=== PATIENT | male | born 1980 | race Hispanic/Latino ===

== ENCOUNTER → 2016-05-02 | Outpatient (CLI) | payer BC ==
--- NOTE | 2016-05-02 09:55 | REP ---
SCROTAL SONOGRAPHY: HISTORY: Testalgia with tenderness. Question torsion. FINDINGS: High-resolution bilateral scrotal sonography shows no evidence of testicular mass lesion on either side. Testicular parenchyma is homogeneous. Testicular Doppler flow is normal bilaterally. Resistive indices are 0.67 on the right and 0.59 on the left. Right testicular dimensions are 5.1 x 2.5 x 3.4 cm. Left testis measures 4.9 x 2.3 x 3.4 cm. There is no evidence of intratesticular mass lesion. Epididymides are unremarkable bilaterally. No other abnormality. IMPRESSION: Normal bilateral scrotal sonography. Normal Doppler flow to both testes. Signed by Tanner Beltrán MD 05/02/2016 02:31 P
== END ==
LOC: M RAD 08:37
PROVIDERS: ATTEND Physician Assistant Medical
DX: N50.819 Testicular pain, unspecified (principal)

== ENCOUNTER → 2016-05-04 | Outpatient (REF) | payer BC | LOC: M LAB REF 16:37 | PROVIDERS: ATTEND Physician Assistant Medical | DX: N39.0 Urinary tract infection, site not specified (principal) ==

== ENCOUNTER → 2016-12-25 | Outpatient (REF) | payer OTHER ==
[~2016-12-25] MED LIST: CEPH500C; CLEO300C2 PO; IBUP200C10 PO; MUPI2OI; RAMI5CA; Tamsulosin
== END ==
LOC: M SFHCADAM 08:48
PROVIDERS: ATTEND Physician Assistant Medical
DX: R30.0 Dysuria (principal)

== ENCOUNTER → 2016-12-25 | Outpatient (REF) | payer OTHER ==
[2016-12-25 12:47] LABS: BASO % 0.7 % (0.0-1.0); EOS # 0.1 K/mm3 (0.0-0.50); EOS % 2.4 % (0.0-3.0); LARGE UNSTAINED CELL # 0.1 K/mm3 (0.0-0.4); LARGE UNSTAINED CELL % 2.5 % (0.0-4.0); LYMPH # 1.4 K/mm3 (1.5-4.5); LYMPH % 29.6 % (24.0-44.0); MEAN CORPUSCULAR HEMOGLOBIN 30.8 pg (27.0-33.0); MEAN CORPUSCULAR HGB CONC 33.2 g/dl (32.0-36.5); MONO # 0.4 K/mm3 (0.0-0.8); MONO % 8.6 % (0.0-5.0); NEUTROPHILS # 2.4 K/mm3 (1.8-7.7); NEUTROPHILS % 56.2 % (36.0-66.0); PLATELET COUNT, AUTOMATED 224 k/mm3 (150-450); WHITE BLOOD COUNT 4.3 K/mm3 (4.0-10.0)
[2016-12-25 13:22] LABS: ALBUMIN 3.8 GM/DL (3.2-5.2); ALBUMIN/GLOBULIN RATIO 1.31 (1.00-1.93); ALKALINE PHOSPHATASE 69 U/L (45-117); ALT/SGPT 51 U/L (12-78); ANION GAP 9 MEQ/L (8-16); AST/SGOT 19 U/L (15-37); BILIRUBIN,TOTAL 0.3 MG/DL (0.2-1.0); BLOOD UREA NITROGEN 10 MG/DL (7-18); CARBON DIOXIDE LEVEL 27 MEQ/L (21-32); CHLORIDE LEVEL 107 MEQ/L (98-107); CHOLESTEROL LEVEL 162 MG/DL (<200); CREATININE FOR GFR 0.78 MG/DL (0.70-1.30); GLOMERULAR FILTRATION RATE > 60.0 (>60); GLUCOSE, FASTING 93 MG/DL (70-105); POTASSIUM SERUM 4.6 MEQ/L (3.5-5.1); SODIUM LEVEL 143 MEQ/L (136-145); TOTAL PROTEIN 6.7 GM/DL (6.4-8.2); TRIGLYCERIDES LEVEL 131 MG/DL (<150)
== END ==
LOC: M SFHCADAM 09:32
PROVIDERS: ATTEND Physician Assistant Medical
DX: E66.01 Morbid (severe) obesity due to excess calories (principal); I10 Essential (primary) hypertension

== ENCOUNTER → 2017-02-04 | Outpatient (CLI) | payer OTHER ==
[2017-02-04 18:16] LABS: BASO % 0.5 % (0.0-1.0); EOS # 0.1 10^3/uL (0.0-0.50); EOS % 1.8 % (0.0-3.0); IMMATURE GRANULOCYTE % 0.4 % (0-0); LYMPH # 1.4 10^3/uL (1.5-4.5); LYMPH % 25.9 % (24.0-44.0); MEAN CORPUSCULAR HEMOGLOBIN 30.9 pg (27.0-33.0); MEAN CORPUSCULAR VOLUME 90.8 fl (80.0-96.0); MONO # 0.6 10^3/uL (0.0-0.8); MONO % 10.1 % (0.0-5.0); NEUTROPHILS # 3.4 10^3/uL (1.8-7.7); NEUTROPHILS % 61.3 % (36.0-66.0); PLATELET COUNT, AUTOMATED 214 10^3/uL (150-450); RED CELL DISTRIBUTION WIDTH 13.6 % (11.5-14.5); WHITE BLOOD COUNT 5.6 10^3/uL (4.0-10.0)
== END ==
LOC: M ADAMS 11:58
PROVIDERS: ATTEND Physician Assistant Medical
DX: R60.0 Localized edema (principal)

== ENCOUNTER → 2017-02-07 | Outpatient (REF) | payer OTHER | LOC: M SMT 12:42 | PROVIDERS: ATTEND Nurse Practitioner Women's Health | DX: R30.0 Dysuria (principal) ==

== ENCOUNTER 2017-02-09 14:03 | Emergency (ER) | payer BC, OTHER ==
[~2017-02-09] VITALS: Ht 170.2 cm; Wt 104.5 kg
[2017-02-09 14:04] VITALS: BP 159/88
[2017-02-09] MEDS ORDERED: MUPI2OI (14:19)
[2017-02-09] MEDS ORDERED: CEPH500C (14:19)
[2017-02-09] MEDS ORDERED: Tamsulosin (14:19)
[2017-02-09] MEDS ORDERED: RAMI5CA (14:19)
[2017-02-09] MEDS ORDERED: IBUP200C10 PO (14:19)
[2017-02-09] MEDS ORDERED: CLEO300C2 PO (15:15)
[2017-02-09] MEDS ORDERED: CLINDAMYCIN 150 MG CAP PO ONE (15:15)
== END 2017-02-09 15:21 | disposition home or self-care (01) ==
LOC: M ED 14:03
DX: L03.811 Cellulitis of head [any part, except face] (principal); I10 Essential (primary) hypertension; Z79.899 Other long term (current) drug therapy

== ENCOUNTER → 2017-03-05 | Outpatient (REF) | payer BC, OTHER | LOC: M SMT 17:05 | PROVIDERS: ATTEND Urology | DX: R39.9 Unspecified symptoms and signs involving the genitourinary system (principal) ==

== ENCOUNTER → 2017-03-16 | Outpatient (CLI) | payer BC, OTHER ==
[~2017-03-16] MED LIST changes: +ISOVUE-370 76% 100ML VIAL (Q9967) As Ordered ONE
--- NOTE | 2017-03-17 07:33 | REP ---
CT ABDOMEN AND PELVIS WITH CONTRAST: HISTORY: Lower urinary tract symptoms. CONTRAST: Isovue-370, 75 mL. The patient is status post cholecystectomy. The liver, pancreas, spleen, adrenal glands, kidneys and ureters are normal in appearance. There is no mass, adenopathy or free fluid. The visualized lungs are clear. The prostate gland and urinary bladder are normal in appearance. Degenerative change is present in the spine. There are bilateral L5 pars defects. There is no spondylolisthesis. IMPRESSION: The patient is status post cholecystectomy. Signed by Varghese Arellano MD 03/17/2017 08:59 A
== END ==
LOC: M RAD 16:26
PROVIDERS: ATTEND Urology
DX: R39.9 Unspecified symptoms and signs involving the genitourinary system (principal)
CPT/HCPCS: 74178; Q9967

== ENCOUNTER → 2017-04-23 | Outpatient (REF) | payer OTHER ==
[2017-04-23 18:37] LABS: AMORPHOUS SEDIMENT LARGE (NEGATIVE); APPEARANCE, URINE TURBID (CLEAR); BACTERIA, URINE AUTO NEGATIVE (NEGATIVE); BILIRUBIN, URINE AUTO NEGATIVE (NEGATIVE); BLOOD, URINE BLOOD NEGATIVE (NEGATIVE); COLOR, URINE YELLOW (YELLOW); GLUCOSE, URINE (UA) AUTO NEGATIVE (NEGATIVE); KETONE, URINE AUTO NEGATIVE (NEGATIVE); LEUKOCYTE ESTERASE, URINE AUTO NEGATIVE (NEGATIVE); MUCUS, URINE SMALL (NEGATIVE); NITRITE, URINE AUTO NEGATIVE (NEGATIVE); PROTEIN, URINE AUTO NEGATIVE (NEGATIVE); RBC, URINE AUTO 1 /HPF (0-3); SQUAMOUS EPITHELIAL CELL UR AU 0 /HPF (0-6); UROBILINOGEN, URINE AUTO 0.2 mg/dL (0.0-2.0); WBC, URINE AUTO 1 /HPF (0-3)
== END ==
LOC: M SMT 17:13
DX: R39.9 Unspecified symptoms and signs involving the genitourinary system (principal)

== ENCOUNTER → 2018-01-15 | Outpatient (CLI) | payer BC, OTHER | LOC: M EKG 14:10 | DX: R00.2 Palpitations (principal) | CPT/HCPCS: 93225 ==

== ENCOUNTER → 2018-01-15 | Outpatient (REF) | payer OTHER ==
[2018-01-15 12:49] LABS: HEMATOCRIT 45.4 % (42.0-52.0); HEMOGLOBIN 15.3 g/dl (13.5-17.5); MEAN CORPUSCULAR HGB CONC 33.7 g/dl (32.0-36.5); MEAN CORPUSCULAR VOLUME 91.9 fl (80.0-96.0); PLATELET COUNT, AUTOMATED 183 10^3/uL (150-450); RED BLOOD COUNT 4.94 10^6/uL (4.30-6.10); RED CELL DISTRIBUTION WIDTH 13.1 % (11.5-14.5)
[2018-01-15 13:44] LABS: ALBUMIN 3.6 GM/DL (3.2-5.2); ALBUMIN/GLOBULIN RATIO 1.03 (1.00-1.93); ALKALINE PHOSPHATASE 76 U/L (45-117); ALT/SGPT 103 U/L (12-78); ANION GAP 9 MEQ/L (8-16); AST/SGOT 41 U/L (7-37); BILIRUBIN,TOTAL 0.7 MG/DL (0.2-1.0); BLOOD UREA NITROGEN 13 MG/DL (7-18); CALCIUM LEVEL 8.1 MG/DL (8.5-10.1); CARBON DIOXIDE LEVEL 23 MEQ/L (21-32); CHLORIDE LEVEL 107 MEQ/L (98-107); CREATININE FOR GFR 1.06 MG/DL (0.70-1.30); GLOMERULAR FILTRATION RATE > 60.0 (>60); GLUCOSE, FASTING 90 MG/DL (70-100); MAGNESIUM LEVEL 2.2 MG/DL (1.8-2.4); POTASSIUM SERUM 4.4 MEQ/L (3.5-5.1); SODIUM LEVEL 139 MEQ/L (136-145); TOTAL PROTEIN 7.1 GM/DL (6.4-8.2)
== END ==
LOC: M SFHCADAM 08:54
DX: R00.2 Palpitations (principal); R63.5 Abnormal weight gain

== ENCOUNTER → 2018-01-15 | Outpatient (CLI) | payer BC, OTHER | LOC: M ADAMS 09:10 | DX: R00.2 Palpitations (principal) | CPT/HCPCS: 71046 ==

== ENCOUNTER 2018-05-23 11:46 | Day surgery (SDC) | payer BC, OTHER ==
[~2018-05-23] VITALS: Ht 170.2 cm; Wt 118.5 kg
[~2018-05-23 11:46] MED LIST changes: -IBUP200C10 PO; +IBUP200C25 PO; -ISOVUE-370 76% 100ML VIAL (Q9967) As Ordered ONE; +LR 1,000 ML IV ONE; +RAMI1CAP24 PO; -RAMI5CA
[2018-05-23] MEDS ORDERED: LIDOCAINE 1% SDV INJ 30 ML VIAL As Ordered ONE (12:05)
[2018-05-23] MEDS ORDERED: PROPOFOL 200 MG/20 ML VIAL As Ordered ONE ×2 (12:29→14:30)
[2018-05-23] MEDS ORDERED: MIDAZOLAM INJ 2 MG/2 ML VIAL (J2250) As Ordered ONE (12:29)
[2018-05-23] MEDS ORDERED: LIDOCAINE 2% INJ 100 MG/5 ML SDV (FOR ANES.) As Ordered ONE (12:29)
[2018-05-23] MEDS ORDERED: fentaNYL 100 MCG/2 ML INJECTION (J3010) As Ordered ONE (12:30)
[2018-05-23] MEDS ORDERED: ONDANSETRON 4MG/2ML VIAL (J2405) As Ordered ONE (14:20)
[2018-05-23] MEDS ORDERED: KETOROLAC 60 MG/2 ML VIAL (J1885) As Ordered ONE (14:20)
[2018-05-23] MEDS ORDERED: dexameTHASONE 4 MG/ML 1ML VIAL (J1100) As Ordered ONE (14:20)
[2018-05-23] MEDS ORDERED: ePHEDrine SULFATE 25 MG/5 ML(5MG/ML) SYRINGE As Ordered ONE (14:22)
--- NOTE | 2018-05-23 15:12 | RO ---
DATE OF PROCEDURE: 05/23/2018 PREPROCEDURE DIAGNOSIS: Unexplained palpitations. POSTPROCEDURE DIAGNOSIS: Unexplained palpitations. FINDINGS: Unexplained palpitations. PROCEDURE: Implantation of [employer] implantable loop recorder. SURGEON: Carlos Parker MD CERTIFIED MEDICATION TECHNICIAN: None. ANESTHESIA: Lidocaine 1% local/monitored anesthetic care. No specimens. Estimated blood loss: Less than 1 mL. No blood products replaced. No drains. No complications. DESCRIPTION OF PROCEDURE: The patient was prepped and draped over the sternum and left anterior chest. Lidocaine 1% was used for local anesthetic. Incision was made approximately 1 cm in length using a #15 blade at the left 4th interspace, 1 inch lateral to the left parasternal border. The guide on the insertion tool was placed into the incision and advanced parallel to the chest wall within the subcutaneous fat in a caudal-left lateral direction. Insertion tool was rotated 180 degrees and then the plunger was placed into the insertion tool and used to advance the loop recorder into the subcutaneous fat. The plunger was then removed and then the insertion tool was removed leaving the loop recorder behind. A single #3-0 Vicryl suture was used to help approximate the deep layer. A temporary stitch to approximate the skin was used consisting of #4-0 Biosyn, which was placed subcuticular with the suture protruding from the skin at both ends of the incision. Next, two layers of Dermabond was applied. Next, the Biosyn suture was then removed from the incision line completely. Next, Mastisol was placed above and below the incision, being careful not to get any Mastisol on the Dermabond. Next, three half-inch Steri-Strips, which were cut in half, were placed perpendicular to the incision line. The patient tolerated the procedure well without any immediate complications. The implantable loop recorder implanted was a [employer] LINQ, model LNQ11 with serial number [id number]. The initial R wave measured 0.45 mV.
[2018-05-23 15:43] VITALS: BP 140/91
== END 2018-05-23 15:45 | disposition home or self-care (01) ==
LOC: M SDC 11:46
PROVIDERS: ATTEND Internal Medicine Cardiovascular Disease
DX: R00.2 Palpitations (principal); I10 Essential (primary) hypertension; G47.30 Sleep apnea, unspecified; Z79.899 Other long term (current) drug therapy
CPT/HCPCS: 33285; C1764; J0690; J1100; J1885; J2250; J2405; J3010

== ENCOUNTER → 2018-07-22 | Outpatient (CLI) | payer BC, OTHER ==
[~2018-07-22] MED LIST changes: -LR 1,000 ML IV ONE
--- NOTE | 2018-07-24 07:15 | ECHO ---
DATE OF PROCEDURE: 07/22/2018 HEIGHT: 67 inches. WEIGHT: 263 pounds BODY SURFACE AREA: 2.27 sq m m2 REFERRING PHYSICIAN: YIMI Zurita INDICATION: Paroxysmal atrial fibrillation. MEASUREMENTS: 2D Measurements: RV - 4.2 cm LV - 4.4 cm Septum -1.1 cm Posterior wall - 1.1 cm LA - 3.9 cm Aortic root - 3.2 cm LVEF - 75% Doppler Measurements: AV - 1.5 meters per second LVOT - 1.2 meters per second LVOT diameter - 2.1 cm MV - E 83, A - 50, E:A ratio 1.7 Early mitral deceleration time 160 milliseconds E prime 8.9, A prime 11, E:E prime ratio 9.3 PV - 0.9 meters per second Pulmonary artery acceleration time 110 milliseconds RVSP - 45 mmHg IVC - 2.2 cm COMMENTS: Sinus bradycardia without intraventricular conduction disturbance. Somewhat challenging study in light of the patient's body habitus but diagnostically useful information was still obtained. M-mode and two-dimensional echocardiography was performed with pulsed, continuous wave, color flow and tissue Doppler studies. Normal left ventricular size, wall thickness and wall motion. Left atrial size upper limits of normal with currently normal Doppler assessment of LV diastolic function and estimated mean left atrial pressure. Mildly dilated right heart chambers with Doppler evidence of moderate pulmonary hypertension. IVC size upper limits of normal with reduced respiratory collapse suggestive of a slightly elevated central venous pressure. Normal-appearing aortic valve and function. Normal aortic root size. Normal-appearing mitral valvular apparatus without prolapse but very mild insufficiency. Normal appearing tricuspid valve with mild insufficiency. No apparent intracardiac mass or pericardial effusion. MTDD
== END ==
LOC: M CARPUL 10:06
PROVIDERS: ATTEND Physician Assistant
DX: I48.0 Paroxysmal atrial fibrillation (principal)

== ENCOUNTER → 2018-10-01 | Outpatient (REF) | payer OTHER ==
[2018-10-01 19:53] LABS: BASO % 0.5 % (0.0-1.0); EOS % 0.9 % (0.0-3.0); HEMATOCRIT 47.2 % (42.0-52.0); HEMOGLOBIN 15.8 g/dl (13.5-17.5); LYMPH # 1.8 10^3/uL (1.5-4.5); LYMPH % 42.3 % (24.0-44.0); MEAN CORPUSCULAR HEMOGLOBIN 31.1 pg (27.0-33.0); MEAN CORPUSCULAR HGB CONC 33.5 g/dl (32.0-36.5); MEAN CORPUSCULAR VOLUME 92.9 fl (80.0-96.0); MONO # 0.6 10^3/uL (0.0-0.8); MONO % 13.1 % (0.0-5.0); NEUTROPHILS # 1.8 10^3/uL (1.8-7.7); PLATELET COUNT, AUTOMATED 197 10^3/uL (150-450); RED BLOOD COUNT 5.08 10^6/uL (4.30-6.10); WHITE BLOOD COUNT 4.3 10^3/uL (4.0-10.0)
[2018-10-01 20:15] LABS: ALBUMIN 3.4 GM/DL (3.2-5.2); ALT/SGPT 63 U/L (12-78); BILIRUBIN,TOTAL 0.5 MG/DL (0.2-1.0); BLOOD UREA NITROGEN 16 MG/DL (7-18); CALCIUM LEVEL 8.7 MG/DL (8.5-10.1); CARBON DIOXIDE LEVEL 28 MEQ/L (21-32); CHLORIDE LEVEL 106 MEQ/L (98-107); CREATININE FOR GFR 0.95 MG/DL (0.70-1.30); GLOMERULAR FILTRATION RATE > 60.0 (>60); GLUCOSE, FASTING 83 MG/DL (70-100); POTASSIUM SERUM 4.6 MEQ/L (3.5-5.1); SODIUM LEVEL 140 MEQ/L (136-145); TOTAL PROTEIN 6.8 GM/DL (6.4-8.2)
[2018-10-01 20:20] LABS: HEMOGLOBIN A1c 6.2 %
== END ==
LOC: M LABDRWAD 19:13
PROVIDERS: ATTEND Surgery
DX: Z01.812 Encounter for preprocedural laboratory examination (principal); I10 Essential (primary) hypertension; G47.33 Obstructive sleep apnea (adult) (pediatric); K21.9 Gastro-esophageal reflux disease without esophagitis

== ENCOUNTER → 2018-11-25 | Outpatient (REF) | payer OTHER ==
[2018-11-25 19:40] LABS: BASO % 0.3 % (0.0-1.0); EOS # 0.1 10^3/uL (0.0-0.50); EOS % 3.8 % (0.0-3.0); HEMATOCRIT 41.9 % (42.0-52.0); LYMPH # 1.2 10^3/uL (1.5-4.5); LYMPH % 39.2 % (24.0-44.0); MEAN CORPUSCULAR HEMOGLOBIN 31.5 pg (27.0-33.0); MEAN CORPUSCULAR HGB CONC 33.4 g/dl (32.0-36.5); MEAN CORPUSCULAR VOLUME 94.2 fl (80.0-96.0); MONO # 0.4 10^3/uL (0.0-0.8); NEUTROPHILS # 1.4 10^3/uL (1.8-7.7); NEUTROPHILS % 44.7 % (36.0-66.0); PLATELET COUNT, AUTOMATED 172 10^3/uL (150-450); RED BLOOD COUNT 4.45 10^6/uL (4.30-6.10); WHITE BLOOD COUNT 3.2 10^3/uL (4.0-10.0)
[2018-11-25 19:47] LABS: ALBUMIN 3.8 GM/DL (3.2-5.2); ALT/SGPT 51 U/L (12-78); BILIRUBIN,TOTAL 0.7 MG/DL (0.2-1.0); BLOOD UREA NITROGEN 14 MG/DL (7-18); CARBON DIOXIDE LEVEL 27 MEQ/L (21-32); CHLORIDE LEVEL 109 MEQ/L (98-107); CREATININE FOR GFR 0.87 MG/DL (0.70-1.30); FERRITIN 239 NG/ML (26-388); GLOMERULAR FILTRATION RATE > 60.0 (>60); GLUCOSE, FASTING 99 MG/DL (70-100); IRON (FE) 59 UG/DL (65-175); MAGNESIUM LEVEL 2.3 MG/DL (1.8-2.4); PERCENT SATURATION 19.5 % (19.7-50.0); PHOSPHORUS LEVEL 3.3 MG/DL (2.5-4.9); POTASSIUM SERUM 3.8 MEQ/L (3.5-5.1); SODIUM LEVEL 141 MEQ/L (136-145); TOTAL IRON BINDING CAPACITY 302 UG/DL (250-450); TOTAL PROTEIN 6.6 GM/DL (6.4-8.2)
[2018-11-25 19:48] LABS: HEMATOCRIT 41.9 % (42.0-52.0)
[2018-11-25 19:57] LABS: TOTAL 25(OH) VITAMIN D 29.9 NG/ML (30.0-100.0); VITAMIN B12 LEVEL 1270 PG/ML (247-911)
[2018-11-25 20:00] LABS: HEMOGLOBIN A1c 6.2 %
== END ==
LOC: M LABDRWAD 19:10
PROVIDERS: ATTEND Physician Assistant
DX: K91.2 Postsurgical malabsorption, not elsewhere classified (principal); Z98.84 Bariatric surgery status; E55.9 Vitamin D deficiency, unspecified

== ENCOUNTER 2019-11-23 22:12 | Emergency (ER) | payer BC, OTHER ==
[2019-11-23] MEDS ORDERED: METOPROLOL TART 25 MG TABLET ONE (22:32)
[2019-11-23] MEDS ORDERED: LORazepam 2 MG/ML VIAL ONE (22:32)
[2019-11-23] MEDS ORDERED: METOPROLOL 5 MG/5 ML VIAL ONE (22:32)
--- NOTE | 2020-01-01 09:17 | ECGEPIP ---
ATRIAL FIBRILLATION ABNORMAL RHYTHM ECG SEE SCANNED DOWNTIME REPORT MTDD
[2020-01-08 18:37] LABS: HEMATOCRIT 47.3 % (42.0-52.0); HEMOGLOBIN 16.3 g/dl (13.5-17.5); MEAN CORPUSCULAR HEMOGLOBIN 30.7 pg (27.0-33.0); MEAN CORPUSCULAR HGB CONC 34.5 g/dl (32.0-36.5); MEAN CORPUSCULAR VOLUME 89.1 fl (80.0-96.0); PLATELET COUNT, AUTOMATED 271 10^3/uL (150-450); RED BLOOD COUNT 5.31 10^6/uL (4.30-6.10); WHITE BLOOD COUNT 6.6 10^3/uL (4.0-10.0)
[2020-02-08 03:34] LABS: BLOOD UREA NITROGEN 14 MG/DL (7-18); CALCIUM LEVEL 8.8 MG/DL (8.5-10.1); CARBON DIOXIDE LEVEL 26 MEQ/L (21-32); CHLORIDE LEVEL 110 MEQ/L (98-107); CREATININE FOR GFR 1.07 MG/DL (0.70-1.30); GLOMERULAR FILTRATION RATE > 60.0 (>60); GLUCOSE, FASTING 92 MG/DL (70-100); POTASSIUM SERUM 3.7 MEQ/L (3.5-5.1); SODIUM LEVEL 144 MEQ/L (136-145)
== END 2019-11-23 23:45 | disposition home or self-care (01) ==
LOC: M ED 22:12
DX: I48.91 Unspecified atrial fibrillation (principal); Z98.84 Bariatric surgery status; Z79.01 Long term (current) use of anticoagulants; Z79.899 Other long term (current) drug therapy
CPT/HCPCS: 80048; 85027; 93005; 96374; 96375; 99284; J2060

== ENCOUNTER → 2020-05-07 | Outpatient (REF) | payer OTHER ==
[~2020-05-07] MED LIST changes: +ACET-897 PO; +AZIT500T5 PO; +DILT180C70; +DILT180C70 PO; +ELIQ5TAB; +ELIQ5TAB PO
[2020-05-07 16:59] LABS: BASO % 0.4 % (0.0-1.0); EOS # 0.1 10^3/uL (0.0-0.5); EOS % 2.3 % (0.0-3.0); HEMATOCRIT 41.5 % (42.0-52.0); HEMOGLOBIN 14.1 g/dl (13.5-17.5); LYMPH # 1.7 10^3/uL (1.5-5.0); MEAN CORPUSCULAR HEMOGLOBIN 30.9 pg (27.0-33.0); MEAN CORPUSCULAR VOLUME 90.8 fl (80.0-96.0); MONO # 0.5 10^3/uL (0.0-0.8); MONO % 9.7 % (0.0-5.0); NEUTROPHILS # 2.9 10^3/uL (1.5-8.5); NEUTROPHILS % 55.2 % (36.0-66.0); PLATELET COUNT, AUTOMATED 230 10^3/uL (150-450); RED BLOOD COUNT 4.57 10^6/uL (4.30-6.10); WHITE BLOOD COUNT 5.3 10^3/uL (4.0-10.0)
[2020-05-07 17:00] LABS: HEMATOCRIT 41.5 % (42.0-52.0)
[2020-05-07 17:30] LABS: HEMOGLOBIN A1c 5.7 %
[2020-05-07 17:36] LABS: ALBUMIN 3.8 GM/DL (3.2-5.2); ALT/SGPT 36 U/L (12-78); BILIRUBIN,TOTAL 0.4 MG/DL (0.2-1.0); BLOOD UREA NITROGEN 14 MG/DL (7-18); CALCIUM LEVEL 9.2 MG/DL (8.5-10.1); CARBON DIOXIDE LEVEL 30 MEQ/L (21-32); CHLORIDE LEVEL 105 MEQ/L (98-107); CHOLESTEROL LEVEL 178 MG/DL (<200); CHOLESTEROL RISK RATIO 3.296 (<5); FERRITIN 104 NG/ML (26-388); FREE T4 0.81 NG/DL (0.76-1.46); GLOMERULAR FILTRATION RATE > 60.0 (>60); GLUCOSE, FASTING 85 MG/DL (70-100); HDL CHOLESTEROL 54 MG/DL (>40); IRON (FE) 86 UG/DL (65-175); LDL CHOLESTEROL 107 MG/DL (<100); NON-HDL-C 124 MG/DL; POTASSIUM SERUM 4.5 MEQ/L (3.5-5.1); SODIUM LEVEL 140 MEQ/L (136-145); THYROID STIMULATING HORMONE 0.329 uIU/ML (0.358-3.740); TOTAL 25(OH) VITAMIN D 22.4 NG/ML (30.0-100.0); TOTAL IRON BINDING CAPACITY 344 UG/DL (250-450); TOTAL PROTEIN 6.7 GM/DL (6.4-8.2); TRIGLYCERIDES LEVEL 86 MG/DL (<150); VITAMIN B12 LEVEL 352 PG/ML
== END ==
LOC: M SFHCADAM 15:37
PROVIDERS: ATTEND Physician Assistant
DX: M54.42 Lumbago with sciatica, left side (principal); I48.0 Paroxysmal atrial fibrillation; I10 Essential (primary) hypertension; R73.01 Impaired fasting glucose; Z98.84 Bariatric surgery status

== ENCOUNTER 2020-05-09 17:36 | Emergency (ER) | payer BC, OTHER ==
[~2020-05-09] VITALS: Ht 170.2 cm; Wt 97.5 kg
[~2020-05-09 17:36] MED LIST changes: -ACET-897 PO; -AZIT500T5 PO; -DILT180C70; -DILT180C70 PO; -ELIQ5TAB; -ELIQ5TAB PO
[2020-05-09] MEDS ORDERED: NS 1,000 ML IV ONE (18:15)
[2020-05-09] MEDS ORDERED: ACETAMINOPHEN 325 MG TAB PO ONE (18:15)
[2020-05-09] MEDS ORDERED: ELIQ5TAB (19:16)
[2020-05-09] MEDS ORDERED: DILT180C70 (19:16)
[2020-05-09 19:35] LABS: BASO % 0.3 % (0.0-1.0); EOS % 0.1 % (0.0-3.0); HEMATOCRIT 44.5 % (42.0-52.0); HEMOGLOBIN 15.1 g/dl (13.5-17.5); LYMPH # 0.9 10^3/uL (1.5-5.0); LYMPH % 9.4 % (24.0-44.0); MEAN CORPUSCULAR HEMOGLOBIN 30.9 pg (27.0-33.0); MEAN CORPUSCULAR HGB CONC 33.9 g/dl (32.0-36.5); MEAN CORPUSCULAR VOLUME 91.2 fl (80.0-96.0); MONO # 0.6 10^3/uL (0.0-0.8); MONO % 6.2 % (0.0-5.0); NEUTROPHILS # 7.9 10^3/uL (1.5-8.5); NEUTROPHILS % 83.8 % (36.0-66.0); PLATELET COUNT, AUTOMATED 227 10^3/uL (150-450); RED BLOOD COUNT 4.88 10^6/uL (4.30-6.10); WHITE BLOOD COUNT 9.4 10^3/uL (4.0-10.0)
--- NOTE | 2020-05-09 20:07 | REPVR ---
PROCEDURE INFORMATION: Exam: XR Chest, 1 View Exam date and time: 05/09/2020 7:47 PM Age: 39 years old Clinical indication: Other: Diminshed breath sounds; Additional info: Diminished breath sounds TECHNIQUE: Imaging protocol: XR of the chest Views: 1 view. Other technique: < start dictation >; Stable atelectasis/scarring left lower lobe. Lungs otherwise clear. Loop recorder demonstrated. COMPARISON: DX CHEST 2 VIEW 01/15/2018 9:31 AM FINDINGS: Lungs: Unremarkable. No consolidation. Pleural space: Unremarkable. No pleural effusion. No pneumothorax. Heart/Mediastinum: Unremarkable. No cardiomegaly. Bones/joints: Unremarkable. IMPRESSION: No acute findings. Electronically signed by: Marcelo Mcneil On 05/09/2020 20:07:20 PM
[2020-05-09 22:08] VITALS: BP 137/78
== END 2020-05-09 22:12 | disposition home or self-care (01) ==
LOC: M ED 17:36
DX: Z11.52 Encounter for screening for COVID-19 (principal); E86.0 Dehydration; R50.9 Fever, unspecified; I48.91 Unspecified atrial fibrillation; I10 Essential (primary) hypertension; G47.30 Sleep apnea, unspecified; Z79.01 Long term (current) use of anticoagulants; Z79.899 Other long term (current) drug therapy; Z91.048 Other nonmedicinal substance allergy status; Z98.0 Intestinal bypass and anastomosis status; N40.0 Benign prostatic hyperplasia without lower urinary tract symptoms
CPT/HCPCS: 71045; 80047; 85025; 96360; 96361; 99284; U0003

== ENCOUNTER 2020-05-10 23:20 | Inpatient (IN) | payer BC, OTHER ==
[~2020-05-10] VITALS: Ht 170.2 cm; Wt 93.3 kg
[~2020-05-10 23:20] MED LIST changes: +DILT180C70; +ELIQ5TAB
[2020-05-11] MEDS ORDERED: NS 1,000 ML IV ONE
[2020-05-11 00:20] LABS: BASO % 0.2 % (0.0-1.0); HEMATOCRIT 46.1 % (42.0-52.0); HEMOGLOBIN 16.1 g/dl (13.5-17.5); LYMPH # 0.6 10^3/uL (1.5-5.0); LYMPH % 5.6 % (24.0-44.0); MEAN CORPUSCULAR HEMOGLOBIN 30.8 pg (27.0-33.0); MEAN CORPUSCULAR HGB CONC 34.9 g/dl (32.0-36.5); MEAN CORPUSCULAR VOLUME 88.1 fl (80.0-96.0); MONO # 0.8 10^3/uL (0.0-0.8); MONO % 7.6 % (0.0-5.0); NEUTROPHILS # 9.2 10^3/uL (1.5-8.5); NEUTROPHILS % 86.1 % (36.0-66.0); PLATELET COUNT, AUTOMATED 224 10^3/uL (150-450); RED BLOOD COUNT 5.23 10^6/uL (4.30-6.10); WHITE BLOOD COUNT 10.6 10^3/uL (4.0-10.0)
[2020-05-11] MEDS ORDERED: DILT180C70 PO (00:21)
[2020-05-11] MEDS ORDERED: ACET-897 PO (00:21)
[2020-05-11] MEDS ORDERED: RAMI1CAP24 PO (00:21)
[2020-05-11] MEDS ORDERED: ELIQ5TAB PO (00:21)
[2020-05-11 00:29] LABS: INR 1.16; PROTHROMBIN TIME 15.1 SECONDS (12.5-14.3)
[2020-05-11 00:30] LABS: PARTIAL THROMBOPLASTIN TIME 34.9 SECONDS (24.2-38.5)
[2020-05-11 00:33] LABS: D-DIMER QUANT 1464.28 ng/ml (<500)
[2020-05-11 00:50] LABS: ALBUMIN 3.9 GM/DL (3.2-5.2); ALT/SGPT 28 U/L (12-78); BILIRUBIN,TOTAL 0.8 MG/DL (0.2-1.0); BLOOD UREA NITROGEN 11 MG/DL (7-18); CALCIUM LEVEL 9.3 MG/DL (8.5-10.1); CARBON DIOXIDE LEVEL 22 MEQ/L (21-32); CHLORIDE LEVEL 107 MEQ/L (98-107); CK-MB VALUE MASS < 1.0 NG/ML (<3.6); CPK CREATINE PHOSPHOKINASE 67 U/L (39-308); CREATININE FOR GFR 1.22 MG/DL (0.70-1.30); ETHYL ALCOHOL (ETHANOL) 0.003 % (0.000-0.010); FERRITIN 230 NG/ML (26-388); GLOMERULAR FILTRATION RATE > 60.0 (>60); GLUCOSE, FASTING 122 MG/DL (70-100); LDH LACTATE DEHYDROGENASE 202 U/L (87-241); MAGNESIUM LEVEL 1.7 MG/DL (1.8-2.4); MB/CK RELATIVE INDEX 1.49 (< OR =4); POTASSIUM SERUM 3.1 MEQ/L (3.5-5.1); SODIUM LEVEL 139 MEQ/L (136-145); TOTAL PROTEIN 7.4 GM/DL (6.4-8.2); TROPONIN I < 0.02 NG/ML (< 0.10)
[2020-05-11 01:44] LABS: RSV AMPLIFICATION NEGATIVE (NEGATIVE)
[2020-05-11] MEDS ORDERED: ISOVUE-370 76% 100ML VIAL As Ordered ONE (01:55)
--- NOTE | 2020-05-11 02:06 | REPVR ---
PROCEDURE INFORMATION: Exam: XR Chest, 1 View Exam date and time: 05/11/20 (12:47am) Age: 39 years old Clinical indication: Cough. Covid work-up. TECHNIQUE: Imaging protocol: Portable CXR Views: 1 view COMPARISON: Portable CXR of 05/09/20 (7:45pm) FINDINGS: Comparison is made with a portable CXR done 29 hours ago. Minimal linear stranding again seen laterally near the left lung base (probable atelectasis or scarring). No focal infiltrates. No pleural effusions. Normal heart size. No vascular congestion. Implanted cardiac loop recorder again seen, projecting just below the left hemidiaphragm. Mild elevation of the left hemidiaphragm. IMPRESSION: No acute chest pathology. The lung tomlinson remain essentially clear. Electronically signed by: Josette Watson On 05/11/2020 02:06:23 AM
[2020-05-11 02:39] LABS: AMPHETAMINES LEVEL URINE NEGATIVE (NEGATIVE); BARBITURATES URINE NEGATIVE (NEGATIVE); BENZODIAZEPINES URINE NEGATIVE (NEGATIVE); CANNABINOIDS URINE POSITIVE (NEGATIVE); COCAINE METABOLITE URINE NEGATIVE (NEGATIVE); METHADONE URINE NEGATIVE (NEGATIVE); OPIATES URINE NEGATIVE (NEGATIVE); PHENCYCLIDINE URINE NEGATIVE (NEGATIVE)
--- NOTE | 2020-05-11 02:54 | REPVR ---
PROCEDURE INFORMATION: Exam: CT Angiography Chest with Contrast Exam date and time: 05/11/20 (2:02am) Age: 39 years old Clinical indication: Nausea, vomiting, diarrhea. Possible pulmonary embolism. TECHNIQUE: Imaging protocol: Computed tomographic angiography of the chest with intravenous contrast. 3D rendering (Not supervised by radiologist): MIP and/or 3D reconstructed images were created by the technologist. Radiation optimization: All CT scans at this facility use at least one of these dose optimization techniques: automated exposure control; mA and/or kV adjustment per patient size (includes targeted exams where dose is matched to clinical indication); or iterative reconstruction. Contrast material: Iso Contrast volume: 75 ml Contrast route: IV COMPARISON: Portable CXR of 05/11/20 FINDINGS: Pulmonary arteries: This is a suboptimal bolus study for complete pulmonary embolism evaluation due to inadequate opacification of the pulmonary arteries. The CT density of the enhanced main pulmonary artery = 130 HU. The desired level of enhancement is > 200 HU. The central pulmonary arteries are patent. 1st and 2nd order arterial branches also appear patent. It is difficult to confidently evaluate smaller, more peripheral arterial branches. Small peripheral pulmonary emboli cannot be definitively excluded by this examination. Aorta: Unremarkable. No aortic aneurysm. No aortic dissection. Lungs: Faint, minimal scattered hazy nonspecific opacities, bilaterally -- such as: below the right hilum (Ser. 401 - Image #94); anterior left lung base (Ser. 401 - Image #109); below the left hilum (Ser. 401 - Image #98). No consolidation. No masses. Pleural space: Unremarkable. No pneumothorax. No pleural effusions. Heart: Unremarkable. No cardiomegaly. No pericardial effusion. Lymph nodes: Unremarkable. No enlarged lymph nodes. Bones/joints: Unremarkable. No acute fracture. Soft tissues: Unremarkable. Upper abdomen: S/P gastric surgery. S/P cholecystectomy. IMPRESSION: Faint scattered bilateral hazy nonspecific ground glass opacities. No consolidation. No pleural effusions. These parenchymal findings may represent mild, early Covid pneumonia, eg. Clinical and laboratory correlation are needed. The bolus study for pulmonary embolism evaluation is suboptimal due to poor pulmonary arterial opacification. This is a limited evaluation for pulmonary embolism. No major nor central pulmonary emboli are appreciated. 1st and 2nd order arterial branches are also patent. More peripheral, smaller arterial branches cannot be evaluated with full confidence. S/P gastric surgery. S/P cholecystectomy. Electronically signed by: Josette Watson On 05/11/2020 02:53:38 AM
[2020-05-11] MEDS ORDERED: POTASSIUM CHLORIDE 10 MEQ SR TABLET PO ONE ×2 (03:15→16:00)
[2020-05-11] MEDS ORDERED: DIGOXIN INJ 0.5 MG/2 ML AMP (J1160) IV ONE ×2 (03:15→07:00)
[2020-05-11] MEDS ORDERED: NS 1,000 ML IV SCH (03:45)
--- NOTE | 2020-05-11 04:36 | HPEPDOC ---
[facility] Medical History & Physical Date of Admission May 11, 2020 Date of Service: May 11, 2020 Primary Care Physician: ALLISON BEST PA-C Attending Physician: EDI MILLER MD History and Physical CHIEF COMPLAINT: Diarrhea, fever HISTORY OF PRESENT ILLNESS: Patient is a 39 year old male with a past medical history significant for paroxysmal atrial fibrillation, hypertension, PAUL, and chronic pain who presented to the [facility] ER with complaint of diarrhea, fevers, chills, aches, and fatigue for 1-2 days duration. Patient stated that he started getting fevers about 2 days ago and has since developed diarrhea. He also states that he has had chills, body aches, and generalized fatigue/weakness. Patient denies any sick contacts. He states no one in his house is sick. He denies any known exposures to COVID-19. Patient denies any bloody diarrhea. In the ER the patient was found to be in Atrial fibrillation with RVR. He was given IV digoxin and IV diltiazem with a positive response. The patient was tested for COVID-19 which was negative. On labs he had a hypokalemia and hypomagnesemia consistent with his diarrheal illness. Additionally, patient had an elevated D-dimer. CTA was ordered which was negative however did show some early bilateral opacities. Hospitalist service was contacted and the patient was admitted for further evaluation and management PAST MEDICAL HISTORY: 1. Paroxysmal atrial fibrillation 2. Hypertension 3. Obstructive Sleep Apnea 4. Obesity 5. Chronic Back pain PAST SURGICAL HISTORY: 1. Cholecystectomy 2. Vasectomy 3. EGD for gastritis 4. Gastric bypass 5. BPH 6. Loop recorder placement SOCIAL HISTORY: Patient lives at home with his and kids. He denies any recent travel. He denies any IV or illicit drug use. Denies alcohol use. Denies tobacco use. His PCP is Allison Boss. His Furniture Mechanic is Dr. Parker FAMILY HISTORY: Father and mother are both alive. Father has hypertension. Mother has CAD, CHF, HTN, and parkinsons. Patients siblings are alive with only medical conditions being PAUL and HTN ALLERGIES: Please see below. REVIEW OF SYSTEMS: CONSTITUTIONAL: Admits to fevers, chills. Denies night sweats. Denies unintentional weight loss HEENT: Denies cough. Denies dysphagia or pain on swallowing CARDIOVASCULAR: Denies chest pain or pressure RESPIRATORY: Denies shortness of breath currently. States he feels slightly short of breath when he has fevers GASTROINTESTINAL: Admits to diarrhea. Denies abdominal pain. Denies nausea or vomiting GENITOURINARY: Denies dysuria or increased frequency. Admits to history of BPH SKIN: Denies rashes or lesions MUSCULOSKELETAL: Admits to full body generalized weakness NEUROLOGICAL: Denies changes in speech or gait PSYCHIATRIC: Mood and affect appear appropriate ENDOCRINE: Denies heat or cold intolerance. Denies diabetes HEMATOLOGIC/LYMPHATIC: Denies easy bruising or bleeding. Denies history of DVT or PE HOME MEDICATIONS: Please see below. PHYSICAL EXAMINATION: VITAL SIGNS: Temperature 97.5, pulse 155, respiratory rate 17, blood pressure 117/62, pulse oximetry 96% on room air. GENERAL APPEARANCE: Awake, alert, and oriented. Appears in no acute distress. Ill appearing. HEENT: Atraumatic, normocephalic. Eyes are nonicteric. Trachea is midline. Mucous membranes are slightly dry CARDIOVASCULAR: Normal S1, S2. Tachycardic rate. Irregularly irregular rhythm. No clicks, rubs, or murmurs LUNGS: Clear vesicular breath sounds bilaterally. Good respiratory effort. No wheezes, rhonchi or rales ABDOMEN: Soft, nondistended. Nontender. No rebound tenderness or guarding. Normoactive bowel sounds EXTREMITIES: No edema. Full and equal pulses in bilateral upper and lower extremities NEUROLOGICAL: No focal neurological deficits PSYCHIATRIC: Mood and affect appear appropriate LABORATORY DATA: See below. IMAGING: PROCEDURE INFORMATION: Exam: CT Angiography Chest with Contrast Exam date and time: 05/11/20 (2:02am) Age: 39 years old Clinical indication: Nausea, vomiting, diarrhea. Possible pulmonary embolism. TECHNIQUE: Imaging protocol: Computed tomographic angiography of the chest with intravenous contrast. 3D rendering (Not supervised by radiologist): MIP and/or 3D reconstructed images were created by the technologist. Radiation optimization: All CT scans at this facility use at least one of these dose optimization techniques: automated exposure control; mA and/or kV adjustment per patient size (includes targeted exams where dose is matched to clinical indication); or iterative reconstruction. Contrast material: Iso Contrast volume: 75 ml Contrast route: IV COMPARISON: Portable CXR of 05/11/20 FINDINGS: Pulmonary arteries: This is a suboptimal bolus study for complete pulmonary embolism evaluation due to inadequate opacification of the pulmonary arteries. The CT density of the enhanced main pulmonary artery = 130 HU. The desired level of enhancement is > 200 HU. The central pulmonary arteries are patent. 1st and 2nd order arterial branches also appear patent. It is difficult to confidently evaluate smaller, more peripheral arterial branches. Small peripheral pulmonary emboli cannot be definitively excluded by this examination. Aorta: Unremarkable. No aortic aneurysm. No aortic dissection. Lungs: Faint, minimal scattered hazy nonspecific opacities, bilaterally -- such as: below the right hilum (Ser. 401 - Image #94); anterior left lung base (Ser. 401 - Image #109); below the left hilum (Ser. 401 - Image #98). No consolidation. No masses. Pleural space: Unremarkable. No pneumothorax. No pleural effusions. Heart: Unremarkable. No cardiomegaly. No pericardial effusion. Lymph nodes: Unremarkable. No enlarged lymph nodes. Bones/joints: Unremarkable. No acute fracture. Soft tissues: Unremarkable. Upper abdomen: S/P gastric surgery. S/P cholecystectomy. IMPRESSION: Faint scattered bilateral hazy nonspecific ground glass opacities. No consolidation. No pleural effusions. These parenchymal findings may represent mild, early Covid pneumonia, eg. Clinical and laboratory correlation are needed. The bolus study for pulmonary embolism evaluation is suboptimal due to poor pulmonary arterial opacification. This is a limited evaluation for pulmonary embolism. No major nor central pulmonary emboli are appreciated. 1st and 2nd order arterial branches are also patent. More peripheral, smaller arterial branches cannot be evaluated with full confidence. S/P gastric surgery. S/P cholecystectomy. Electronically signed by: Josette Watson On 05/11/2020 02:53:38 AM PROCEDURE INFORMATION: Exam: XR Chest, 1 View Exam date and time: 05/11/20 (12:47am) Age: 39 years old Clinical indication: Cough. Covid work-up. TECHNIQUE: Imaging protocol: Portable CXR Views: 1 view COMPARISON: Portable CXR of 05/09/20 (7:45pm) FINDINGS: Comparison is made with a portable CXR done 29 hours ago. Minimal linear stranding again seen laterally near the left lung base (probable atelectasis or scarring). No focal infiltrates. No pleural effusions. Normal heart size. No vascular congestion. Implanted cardiac loop recorder again seen, projecting just below the left hemidiaphragm. Mild elevation of the left hemidiaphragm. IMPRESSION: No acute chest pathology. The lung tomlinson remain essentially clear. Electronically signed by: Josette Watson On 05/11/2020 02:06:23 AM MICROBIOLOGY: Please see below. ASSESSMENT: Patient is a 39 year old male with a past medical history significant for paroxysmal atrial fibrillation on eliquis, hypertension, PAUL, and obesity who presented to the [facility] ER with complaint of diarrhea, fever, and body aches. On presentation patient was found to be in Atrial fibrillation with RVR. . PLAN: 1. Atrial Fibrillation with RVR -Patient presenting with atrial fibrillation with RVR. Previous history of paroxysmal atrial fibrillation. RVR is likely related to his acute illness. He has received 20 mg IV diltiazem in the ER as well as 0.5mg Digoxin -Patients rate has come down to 90-100 with IV diltiazem and digoxin. -BP on lower end. Will hold AM dose of Cardizem Cd. Will continue with digoxin loading. 0.25mg at 0700. His final dose to complete loading would be 0.25mg at 1100. -Given patients young age he should pursue rhythm control outpatient based on the EAST-AFNET 4 trial. Early rhythm control may prevent atrial remodeling 2. Diarrhea w fever -Patient presenting with diarrhea, fevers, chills, body aches, and generalized fatigue. Patient had a COVID-19 test in ER which was negative. He does have and elevated CRP and D-dimer which are nonspecific markers however given his age I would be inclined to re-test the patient for COVID-19 in 24 mady rs. -Patient received IV bolus NS. Will give IVF at 125 ml/hr -Tylenol prn for fever -Recommend repeating COVID-19 test in [address] patient in contact/droplet precautions for now. Will trend CRP, ferritin, D-dimer 3. SIRS/Sepsis -Patient with elevated WBC and tachycardia. -Chest x-ray negative. CTA showing some possible developing bilateral opacities. Blood cultures pending. Procalcitonin pending 4. Hypokalemia and Hypomagnesemia -Likely secondary to diarrhea -Patient got PO potassium in ED -Will replete magnesium -Will continue to monitor 5. Elevated D-dimer -Patient had an elevated D-dimer on presentation. Non-specific marker of inflammation. CTA was negative for PE. CTA did show some scattered hazy bilateral infiltrates which could represent COVID PNA. 6. Hypertension -Patient is currently normotensive. He has received 20mg IV diltiazem. Will continue his Ramipril. Will hold his Cardizem for now 7. PAUL -Noncompliant with CPAP at home -O2 titration orders for spO2 > 90% 8. Obesity -BMI 32.5 9. DVT Prophylaxis -Patient chronically on eliquis -TEDS and Sequentials Vital Signs Vital Signs Date Time Temp Pulse Resp B/P (MAP) Pulse Ox O2 Delivery O2 Flow Rate FiO2 05/11/20 03:14 174 05/11/20 03:00 17 103/65 (78) 99 Room Air 05/10/20 23:20 97.5 Laboratory Data Labs 24H Laboratory Tests 2 05/11/20 00:07: Prothrombin Time 15.1H, Prothromb Time International Ratio 1.16, Activated Partial Thromboplast Time 34.9, Fibrinogen 565H, D-Dimer, Quantitative 1464.28H, Anion Gap 10, Glomerular Filtration Rate > 60.0, Calcium Level 9.3, Magnesium Level 1.7L, Ferritin 230, Total Bilirubin 0.8, Aspartate Amino Transf (AST/SGOT) 10, Alanine Aminotransferase (ALT/SGPT) 28, Alkaline Phosphatase 82, Lactate Dehydrogenase 202, Total Creatine Kinase 67, Creatine Kinase MB < 1.0, Creatine Kinase MB Relative Index 1.49, Troponin I < 0.02, C-Reactive Protein, Quantitative 13.40H, Total Protein 7.4, Albumin 3.9, Albumin/Globulin Ratio 1.1, Ethyl Alcohol Level 0.003 05/11/20 00:08: Immature Granulocyte % (Auto) 0.5, Neutrophils (%) (Auto) 86.1H, Lymphocytes (%) (Auto) 5.6L, Monocytes (%) (Auto) 7.6H, Eosinophils (%) (Auto) 0.0, Basophils (%) (Auto) 0.2, Neutrophils # (Auto) 9.2H, Lymphocytes # (Auto) 0.6L, Monocytes # (Auto) 0.8, Eosinophils # (Auto) 0.0, Basophils # (Auto) 0.0, Nucleated Red Blood Cells % (auto) 0.0, Urine Color YELLOW, Urine Appearance HAZY, Urine pH 6.0, Urine Specific [place] 1.024, Urine Protein 1+H, Urine Glucose (UA) NEGATIVE, Urine Ketones 1+H, Urine Blood NEGATIVE, Urine Nitrite NEGATIVE, Urine Bilirubin NEGATIVE, Urine Urobilinogen 0.2, Urine Leukocyte Esterase NEGATIVE, Urine WBC (Auto) 2, Urine RBC (Auto) 3, Urine Hyaline Casts (Auto) 0, Urine Bacteria (Auto) NEGATIVE, Urine Squamous Epithelial Cells 0, Urine Mucus (Auto) SMALL, Urine Sperm (Auto) , Lactic Acid Level 1.7 05/11/20 00:15: Coronavirus (COVID-19)(PCR) NEGATIVE, Influenza Type A (RT-PCR) NEGATIVE, Influenza Type B (RT-PCR) NEGATIVE, Respiratory Syncytial Virus (PCR) NEGATIVE 05/11/20 02:01: Urine Opiates Screen NEGATIVE, Urine Methadone Screen NEGATIVE, Urine Barbiturates Screen NEGATIVE, Urine Phencyclidine Screen NEGATIVE, Urine Amphetamines Screen NEGATIVE, Urine Benzodiazepines Screen NEGATIVE, Urine Cocaine Metabolite Screen NEGATIVE, Urine Cannabinoids Screen POSITIVEH CBC/BMP Laboratory Tests 05/11/20 00:07 05/11/20 00:08 Microbiology Microbiology 05/11/20 Gastrointestinal Tract Panel (PCR), Received Pending 05/11/20 Blood Culture, Received Pending 05/11/20 Blood Culture, Received Pending Home Medications Scheduled Apixaban (Eliquis) 5 Mg Tablet, 5 MG PO BID Ramipril (Ramipril) 5 Mg Capsule, 5 MG PO QHS dilTIAZem HCl (Diltiazem 24Hr Cd) 180 Mg Cap.er.24h, 180 MG PO DAILY TAKES IN THE AFTERNOON Scheduled PRN Acetaminophen (Tylenol Extra Strength) 500 Mg Tablet, 1,000 MG PO Q6H PRN for PAIN / FEVER Allergies Coded Allergies: SEASONAL ALLERGIES (Verified Allergy, Unknown, 05/09/20) A-FIB/CHADSVASC A-FIB History Current/History of A-Fib/PAF?: Yes Current PO Anticoag Therapy: Yes GME ATTESTATION GME ATTESTATION My faculty preceptor for this patient encounter was physically present during the encounter and was fully available. All aspects of the patient interview, examination, medical decision making process, and medical care plan development were reviewed and approved by the faculty preceptor. The faculty preceptor is aware and concurs with the plan as stated in the body of this note and will attest to such by his/her cosignature. ATTENDING NOTE TIME OF SERVICE 446 AM is a 39 yr old who presented w n/v/d and was found to be in rapid Afib & have SIRS. Rest per 's H&P TIKI MUNGUIA DO May 11, 2020 04:36 EDI MILLER MD May 11, 2020 06:55
[2020-05-11 04:40] VITALS: BP 102/56
[2020-05-11] MEDS: MAG SULF 1GM/100ML (MAG RUN) 1 GM in IV 1 EA IV SCH ×2 (05:14→06:28)
[2020-05-11 07:24] LABS: HEMATOCRIT 45.1 % (42.0-52.0); HEMOGLOBIN 15.4 g/dl (13.5-17.5); MEAN CORPUSCULAR HEMOGLOBIN 30.6 pg (27.0-33.0); MEAN CORPUSCULAR HGB CONC 34.1 g/dl (32.0-36.5); MEAN CORPUSCULAR VOLUME 89.7 fl (80.0-96.0); PLATELET COUNT, AUTOMATED 226 10^3/uL (150-450); RED BLOOD COUNT 5.03 10^6/uL (4.30-6.10); WHITE BLOOD COUNT 8.8 10^3/uL (4.0-10.0)
[2020-05-11 07:44] LABS: LYMPHOCYTES 9 % (16-44); METAMYELOCYTES 1 % (0-0); MONOCYTES 1 % (0-5); NEUTROPHILS 88 % (28-66); PLATELET ESTIMATE NORMAL (NORMAL)
[2020-05-11 07:56] LABS: ALBUMIN 3.7 GM/DL (3.2-5.2); ALT/SGPT 25 U/L (12-78); BILIRUBIN,TOTAL 0.6 MG/DL (0.2-1.0); BLOOD UREA NITROGEN 9 MG/DL (7-18); CALCIUM LEVEL 8.8 MG/DL (8.5-10.1); CARBON DIOXIDE LEVEL 19 MEQ/L (21-32); CHLORIDE LEVEL 107 MEQ/L (98-107); CREATININE FOR GFR 0.95 MG/DL (0.70-1.30); FERRITIN 239 NG/ML (26-388); GLOMERULAR FILTRATION RATE > 60.0 (>60); GLUCOSE, FASTING 118 MG/DL (70-100); MAGNESIUM LEVEL 2.3 MG/DL (1.8-2.4); NT-PRO BNP 601 PG/ML (<125); POTASSIUM SERUM 3.3 MEQ/L (3.5-5.1); SODIUM LEVEL 140 MEQ/L (136-145)
[2020-05-11 08:00] VITALS: BP 96/52
[2020-05-11] MEDS ORDERED: cefTRIAXone SOD 1 GM in D5W MINI-BAG PLUS 50 ML IV SCH (08:00)
[2020-05-11] MEDS: APIXABAN 5 MG TAB (ELIQUIS) PO SCH ×2 (08:32→21:37)
[2020-05-11] MEDS ORDERED: DOXYCYCLINE HYCLATE 100MG TABLET PO SCH (09:00)
[2020-05-11] MEDS: ACETAMINOPHEN TAB 650MG DOSE (2X325MG) PO PRN ×2 (11:32→21:41)
[2020-05-11 12:00] VITALS: BP 122/78
[2020-05-11] MEDS ORDERED: diltiaZEM **CD** 180 MG CAP PO SCH (14:00)
[2020-05-11 16:00] VITALS: BP 120/80
--- NOTE | 2020-05-11 16:15 | IPNPDOC ---
Date Seen The patient was seen on 05/11/20. Progress Note SUBJECTIVE: Temp 100.8 overnight, several documented loose stools. Started on abs for ? b/l PNA. Repeat COVID, C. diff neg but + for Campylobacter in GI panel. Feels slightly improved since admission OBJECTIVE PHYSICAL EXAMINATION: VITAL SIGNS:Please see belwo GENERAL APPEARANCE: NAD, lethargic but Ox3 HEENT: Atraumatic, normocephalic. Eyes are nonicteric. Trachea is midline. Mucous membranes are slightly dry CARDIOVASCULAR: Normal S1, S2. Tachycardic rate. Irregularly irregular rhythm. No clicks, rubs, or murmurs LUNGS: Clear vesicular breath sounds bilaterally. Good respiratory effort. No wheezes, rhonchi or rales ABDOMEN: Soft, nondistended. Nontender. No rebound tenderness or guarding. Normoactive bowel sounds EXTREMITIES: No edema. Full and equal pulses in bilateral upper and lower extremities NEUROLOGICAL: No focal neurological deficits PSYCHIATRIC: Mood and affect appear appropriate LABORATORY DATA: See below. IMAGING: CT Angiography Chest with Contrast : Faint scattered bilateral hazy nonspecific ground glass opacities. No consolidation. No pleural effusions. These parenchymal findings may represent mild, early Covid pneumonia, eg. Clinical and laboratory correlation are needed. The bolus study for pulmonary embolism evaluation is suboptimal due to poor pulmonary arterial opacification. This is a limited evaluation for pulmonary embolism.No major nor central pulmonary emboli are appreciated. 1st and 2nd order arterial branches are also patent. More peripheral, smaller arterial branches cannot be evaluated with full confidence. CXR: No acute chest pathology. The lung tomlinson remain essentially clear. MICROBIOLOGY: Please see below. ASSESSMENT: Patient is a 39 year old male with a past medical history significant for paroxysmal atrial fibrillation on eliquis, hypertension, PAUL, and obesity who presented to the [facility] ER with complaint of diarrhea, fever, and body aches. On presentation patient was found to be in Atrial fibrillation with RVR. PLAN: Atrial Fibrillation with RVR, acute on chronic paroxysmal atrial fib likely 2/2 to acute infections below -HR improved to 80-102, denies CP, SOB, palpitations -Restarting diltiazem in AM with holding parameters -Tele Campylobacter diarrhea, sepsis resolved -Febrile overnight, WBC wnl this AM, lactic acid wnl, HR improving -GI panel: Campylobacter -states to have had >10 stools since admission; however, not documented -C/w IVFs, azithromycin daily (consider 7 day course) Bilateral hazy nonspecific ground glass opacities, new. -Febrile, repeat COVID neg -Started on ceftriaxone, azithromycin daily while procalcitonin pending- if neg, stop abx -Sputum cx, daily labs Hypokalemia, acute and likely 2/2 to diarrhea -K 3.3 -Given 40mEq KCL -F/u repeat K in AM Hypomagnesemia, acute and likely 2/2 to diarrhea -wnl this AM Elevated D-dimer -possibly 2/2 to acute issues above but cannot r/o PE on CTA -COVID neg Hypertension -Stable -Resume home dilitiazem on 05/12/20 -C/w ACEi PAUL -Noncompliant with CPAP at home -O2 titration orders for spO2 > 90% DVT Prophylaxis -Patient chronically on eliquis -TEDS and Sequentials DISPOSITION: If patient appears less lethargic in AM, ordering PT/OT. Plan is home at discharge. [facility]O Vital Signs Date Time Temp Pulse Resp B/P (MAP) Pulse Ox O2 Delivery O2 Flow Rate FiO2 05/11/20 12:00 97.7 80 20 122/78 (93) 97 Room Air I&O- Last 24 Hours up to 6 AM 05/11/20 06:00 Intake Total 1000 ml Output Total 0 ml Balance 1000 ml Laboratory Data 24H LABS Laboratory Tests 2 05/11/20 00:07: Prothrombin Time 15.1H, Prothromb Time International Ratio 1.16, Activated Partial Thromboplast Time 34.9, Fibrinogen 565H, D-Dimer, Quantitative 1464.28H, Anion Gap 10, Glomerular Filtration Rate > 60.0, Calcium Level 9.3, Magnesium Level 1.7L, Ferritin 230, Total Bilirubin 0.8, Aspartate Amino Transf (AST/SGOT) 10, Alanine Aminotransferase (ALT/SGPT) 28, Alkaline Phosphatase 82, Lactate Dehydrogenase 202, Total Creatine Kinase 67, Creatine Kinase MB < 1.0, Creatine Kinase MB Relative Index 1.49, Troponin I < 0.02, C-Reactive Protein, Quantitative 13.40H, Total Protein 7.4, Albumin 3.9, Albumin/Globulin Ratio 1.1, Ethyl Alcohol Level 0.003 05/11/20 00:08: Immature Granulocyte % (Auto) 0.5, Neutrophils (%) (Auto) 86.1H, Lymphocytes (%) (Auto) 5.6L, Monocytes (%) (Auto) 7.6H, Eosinophils (%) (Auto) 0.0, Basophils (%) (Auto) 0.2, Neutrophils # (Auto) 9.2H, Lymphocytes # (Auto) 0.6L, Monocytes # (Auto) 0.8, Eosinophils # (Auto) 0.0, Basophils # (Auto) 0.0, Nucleated Red Blood Cells % (auto) 0.0, Urine Color YELLOW, Urine Appearance HAZY, Urine pH 6.0, Urine Specific Farber 1.024, Urine Protein 1+H, Urine Glucose (UA) NEGATIVE, Urine Ketones 1+H, Urine Blood NEGATIVE, Urine Nitrite NEGATIVE, Urine Bilirubin NEGATIVE, Urine Urobilinogen 0.2, Urine Leukocyte Esterase NEGATIVE, Urine WBC (Auto) 2, Urine RBC (Auto) 3, Urine Hyaline Casts (Auto) 0, Urine Bacteria (Auto) NEGATIVE, Urine Squamous Epithelial Cells 0, Urine Mucus (Auto) SMALL, Urine Sperm (Auto) , Lactic Acid Level 1.7, Procalcitonin 0.18 05/11/20 00:15: Coronavirus (COVID-19)(PCR) NEGATIVE, Influenza Type A (RT-PCR) NEGATIVE, Influenza Type B (RT-PCR) NEGATIVE, Respiratory Syncytial Virus (PCR) NEGATIVE 05/11/20 02:01: Urine Opiates Screen NEGATIVE, Urine Methadone Screen NEGATIVE, Urine B arbiturates Screen NEGATIVE, Urine Phencyclidine Screen NEGATIVE, Urine Amphetamines Screen NEGATIVE, Urine Benzodiazepines Screen NEGATIVE, Urine Cocaine Metabolite Screen NEGATIVE, Urine Cannabinoids Screen POSITIVEH 05/11/20 06:12: Neutrophils (%) (Auto) , Nucleated Red Blood Cells % (auto) 0.0, Neutrophils 88H, Band Neutrophils 1, Lymphocytes (Manual) 9L, Monocytes (Manual) 1, Metamyelocytes 1H, Red Blood Cell Morphology NORMAL, Platelet Estimate NORMAL, D-Dimer, Quantitative 2606.08H, Anion Gap 14, Glomerular Filtration Rate > 60.0, Calcium Level 8.8, Magnesium Level 2.3, Ferritin 239, Total Bilirubin 0.6, Aspartate Amino Transf (AST/SGOT) 10, Alanine Aminotransferase (ALT/SGPT) 25, Alkaline Phosphatase 73, C-Reactive Protein, Quantitative 15.60H, RL-[id number]-Type Natriuretic Peptide 601H, Total Protein 7.0, Albumin 3.7, Albumin/Globulin Ratio 1.1 05/11/20 11:14: Coronavirus (COVID-19)(PCR) NEGATIVE CBC/BMP Laboratory Tests 05/11/20 00:07 05/11/20 00:08 05/11/20 06:12 Microbiology Microbiology 05/11/20 Gastrointestinal Tract Panel (PCR) - Final, Complete Campylobacter 05/11/20 Blood Culture, Received Pending 05/11/20 Blood Culture, Received Pending Current Medications Current Medications Medications (Trade) Dose Ordered Sig/Rafael Route PRN Reason Start Time Stop Time Status Last Admin Dose Admin Acetaminophen (Tylenol Tab) 650 mg Q4H PRN PO PAIN OR FEVER 05/11/20 03:30 05/11/20 11:32 Apixaban (Eliquis) 5 mg BID PO 05/11/20 09:00 05/11/20 08:32 Ceftriaxone Sodium 1 gm/ Dextrose 50 ml @ 100 mls/hr Q24H IV 05/11/20 08:00 05/11/20 08:32 Diltiazem HCl (Cardizem Cd) 180 mg DAILY@1400 PO 05/11/20 14:00 05/11/20 03:53 DC Diltiazem HCl (Cardizem) 20 mg STAT STAT IV 05/11/20 00:21 05/11/20 00:22 DC 05/11/20 00:36 Doxycycline Hyclate (Vibramycin) 100 mg BID PO 05/11/20 09:00 05/11/20 08:32 Home Med (Med Rec Complete!) ASDIRECTED XX 05/11/20 00:30 05/11/20 00:23 DC Magnesium Sulfate/ Dextrose 1 gm/IV Miscellaneous Supplies 100 ml @ 100 mls/hr 0400,0500 IV 05/11/20 04:00 05/11/20 09:00 DC 05/11/20 06:28 Ramipril (Altace) 5 mg QHS PO 05/11/20 21:00 Sodium Chloride 1,000 ml @ 125 mls/hr Q8H IV 05/11/20 03:45 05/11/20 11:44 DC 05/11/20 05:13 Allergies Coded Allergies: SEASONAL ALLERGIES (Verified Allergy, Unknown, 05/09/20) Ailyn Martinez MD May 11, 2020 16:15
[2020-05-11] MEDS: diltiaZEM **CD** 180 MG CAP PO SCH (16:53)
[2020-05-11] MEDS: NS 1,000 ML IV SCH (16:54)
[2020-05-11] MEDS: AZITHROMYCIN INJ 500 MG, VIAL MATE ADAPTER 1 EACH in D5W 250 ML IV SCH (16:54)
[2020-05-11 20:04] VITALS: BP 128/82
[2020-05-11] MEDS: ramipriL 5 MG CAP PO SCH (21:37)
[2020-05-12] VITALS: BP 116/72
[2020-05-12] MEDS: NS 1,000 ML IV SCH ×3 (02:29→22:15)
[2020-05-12 04:00] VITALS: BP 104/68
[2020-05-12 06:12] LABS: HEMATOCRIT 39.4 % (42.0-52.0); MEAN CORPUSCULAR HEMOGLOBIN 30.4 pg (27.0-33.0); MEAN CORPUSCULAR HGB CONC 33.2 g/dl (32.0-36.5); MEAN CORPUSCULAR VOLUME 91.4 fl (80.0-96.0); PLATELET COUNT, AUTOMATED 181 10^3/uL (150-450); RED BLOOD COUNT 4.31 10^6/uL (4.30-6.10); WHITE BLOOD COUNT 5.3 10^3/uL (4.0-10.0)
[2020-05-12 06:23] LABS: HEMOGLOBIN 13.1 g/dl (13.5-17.5)
[2020-05-12 06:43] LABS: ALBUMIN 2.9 GM/DL (3.2-5.2); ALT/SGPT 21 U/L (12-78); ATYPICAL LYMPH 1 % (0-5); BILIRUBIN,TOTAL 0.3 MG/DL (0.2-1.0); BLOOD UREA NITROGEN 12 MG/DL (7-18); CALCIUM LEVEL 8.3 MG/DL (8.5-10.1); CARBON DIOXIDE LEVEL 26 MEQ/L (21-32); CHLORIDE LEVEL 109 MEQ/L (98-107); CREATININE FOR GFR 0.86 MG/DL (0.70-1.30); FERRITIN 248 NG/ML (26-388); GLOMERULAR FILTRATION RATE > 60.0 (>60); GLUCOSE, FASTING 88 MG/DL (70-100); LYMPHOCYTES 23 % (16-44); MONOCYTES 5 % (0-5); NEUTROPHILS 71 % (28-66); PLATELET ESTIMATE NORMAL (NORMAL); POTASSIUM SERUM 3.8 MEQ/L (3.5-5.1); SODIUM LEVEL 143 MEQ/L (136-145); TOTAL PROTEIN 5.8 GM/DL (6.4-8.2)
[2020-05-12 08:18] VITALS: BP 118/58
[2020-05-12] MEDS: APIXABAN 5 MG TAB (ELIQUIS) PO SCH ×2 (09:12→21:13)
[2020-05-12 12:00] VITALS: BP 118/60
--- NOTE | 2020-05-12 13:37 | IPNPDOC ---
Date Seen The patient was seen on 05/12/20. Progress Note SUBJECTIVE: Afebrile overnight, decreased loose stools today thus far. Procalcitonin slightly elevated, PNA vs. GI infection? Denies abd pain, chills but admits to continued lethargy. Did well with PT/OT. OBJECTIVE: PHYSICAL EXAMINATION: VITAL SIGNS:Please see below GENERAL APPEARANCE: NAD, lethargic but Ox3 HEENT: Atraumatic, normocephalic. Eyes are nonicteric. Trachea is midline. Mucou s membranes moist CARDIOVASCULAR: Normal S1, S2. Tachycardic rate. Irregularly irregular rhythm. No clicks, rubs, or murmurs LUNGS: Clear breath sounds bilaterally. Good respiratory effort. No wheezes, rhonchi or rales ABDOMEN: Soft, nondistended. Nontender. No rebound tenderness or guarding. Normoactive bowel sounds EXTREMITIES: No edema. Full and equal pulses in bilateral upper and lower extrem ities NEUROLOGICAL: No focal neurological deficits PSYCHIATRIC: Mood and affect appear appropriate LABORATORY DATA: See below. IMAGING: CT Angiography Chest with Contrast : Faint scattered bilateral hazy nonspecific ground glass opacities. No consolidation. No pleural effusions. These parenchymal findings may represent mild, early Covid pneumonia, eg. Clinical and laboratory correlation are needed. The bolus study for pulmonary embolism evaluation is suboptimal due to poor pulmonary arterial opacification. This is a limited evaluation for pulmonary embolism.No major nor central pulmonary emboli are appreciated. 1st and 2nd order arterial branches are also patent. More peripheral, smaller arterial branches cannot be evaluated with full confidence. CXR: No acute chest pathology. The lung tomlinson remain essentially clear. MICROBIOLOGY: Repeat COVID: neg ASSESSMENT: Patient is a 39 year old male with a past medical history significant for paroxysmal atrial fibrillation on eliquis, hypertension, PAUL, and obesity who presented to the [facility] ER with complaint of diarrhea, fever, and body aches. On presentation patient was found to be in Atrial fibrillation with RVR. PLAN: Atrial Fibrillation, RVR already resolved and was likely 2/2 to acute infections below -HR improved to 70-80, denies CP, SOB, palpitations -C/w diltiazem -Tele Campylobacter diarrhea, sepsis resolved -Afebrile over the lat 24H, WBC wnl this AM, lactic acid wnl, HR improved -GI panel: Campylobacter -states to have had >8 stools since admission; however, documented to have only 3 stools -C/w IVFs, azithromycin daily (consider 7 day course) Bilateral hazy nonspecific ground glass opacities, new. -Febrile, repeat COVID neg -Procalcitonin <0.25 -Sputum cx contaminated -D/jhoana abx for this at this time, on RA with no respiratory symptoms Elevated D-dimer -Wells Score: 0, low risk -possibly 2/2 to acute issues above but could not r/o PE on CTA -COVID neg Hypertension -Stable -Resume home dilitiazem, ACEi PAUL -Noncompliant with CPAP at home -O2 titration orders for spO2 > 90% DVT Prophylaxis -Patient chronically on eliquis -TEDS and Sequentials Resolved issues: Hypokalemia, acute and likely 2/2 to diarrhea Hypomagnesemia, acute and likely 2/2 to diarrhea DISPOSITION: Did well with PT/OT. Plan is home when patient having less diarrhea, can switch to PO abs. VS, I&O, 24H, Fishbone Vital Signs/I&O Vital Signs Date Time Temp Pulse Resp B/P (MAP) Pulse Ox O2 Delivery O2 Flow Rate FiO2 05/12/20 12:00 97.5 78 20 118/60 (79) Room Air 05/12/20 08:18 96 I&O- Last 24 Hours up to 6 AM 05/12/20 06:00 Intake Total 3870 ml Output Total 0 ml Balance 3870 ml Laboratory Data 24H LABS Laboratory Tests 2 05/11/20 16:52: Procalcitonin 0.23 05/12/20 05:48: Neutrophils (%) (Auto) , Nucleated Red Blood Cells % (auto) 0.0, Neutrophils 71H, Lymphocytes (Manual) 23, Monocytes (Manual) 5, Atypical Lymphocytes 1, Red Blood Cell Morphology NORMAL, Platelet Estimate NORMAL, D-Dimer, Quantitative 2652.87H, Anion Gap 8, Glomerular Filtration Rate > 60.0, Calcium Level 8.3L, Magnesium Level 2.0, Ferritin 248, Total Bilirubin 0.3, Aspartate Amino Transf (AST/SGOT) 12, Alanine Aminotransferase (ALT/SGPT) 21, Alkaline Phosphatase 58, C-Reactive Protein, Quantitative 12.70H, Total Protein 5.8L, Albumin 2.9#L, Albumin/Globulin Ratio 1.0 CBC/BMP Laboratory Tests 05/12/20 05:48 Microbiology Microbiology 05/11/20 Gram Stain - Final, Complete 05/11/20 Sputum Culture - Final, Complete 05/11/20 Gastrointestinal Tract Panel (PCR) - Final, Complete Campylobacter 05/11/20 Blood Culture - Preliminary, Resulted No growth after 24 hours . All specim... 05/11/20 Blood Culture - Preliminary, Resulted No growth after 24 hours . All specim... Current Medications Current Medications Medications (Trade) Dose Ordered Sig/Rafael Route PRN Reason Start Time Stop Time Status Last Admin Dose Admin Acetaminophen (Tylenol Tab) 650 mg Q4H PRN PO PAIN OR FEVER 05/11/20 03:30 05/11/20 21:41 Apixaban (Eliquis) 5 mg BID PO 05/11/20 09:00 05/12/20 09:12 Azithromycin 500 mg/IV Miscellaneous Supplies 1 each/ Dextrose 255 ml @ 255 mls/hr Q24H IV 05/11/20 17:00 05/11/20 16:54 Ceftriaxone Sodium 1 gm/ Dextrose 50 ml @ 100 mls/hr Q24H IV 05/11/20 08:00 05/11/20 16:05 DC 05/11/20 08:32 Diltiazem HCl (Cardizem Cd) 180 mg DAILY@1400 PO 05/11/20 14:00 05/11/20 03:53 DC Diltiazem HCl (Cardizem Cd) 180 mg DAILY@1400 PO 05/11/20 14:00 05/11/20 16:53 Diltiazem HCl (Cardizem) 20 mg STAT STAT IV 05/11/20 00:21 05/11/20 00:22 DC 05/11/20 00:36 Doxycycline Hyclate (Vibramycin) 100 mg BID PO 05/11/20 09:00 05/11/20 16:05 DC 05/11/20 08:32 Home Med (Med Rec Complete!) ASDIRECTED XX 05/11/20 00:30 05/11/20 00:23 DC Magnesium Sulfate/ Dextrose 1 gm/IV Miscellaneous Supplies 100 ml @ 100 mls/hr 0400,0500 IV 05/11/20 04:00 05/11/20 09:00 DC 05/11/20 06:28 Ramipril (Altace) 5 mg QHS PO 05/11/20 21:00 05/11/20 21:37 Sodium Chloride 1,000 ml @ 100 mls/hr Q10H IV 05/11/20 16:15 05/12/20 12:15 Sodium Chloride 1,000 ml @ 125 mls/hr Q8H IV 05/11/20 03:45 05/11/20 11:44 DC 05/11/20 05:13 Allergies Coded Allergies: SEASONAL ALLERGIES (Verified Allergy, Unknown, 05/09/20) Ailyn Martinez MD May 12, 2020 13:37
[2020-05-12 14:04] VITALS: BP 120/72
[2020-05-12] MEDS: diltiaZEM **CD** 180 MG CAP PO SCH (14:04)
--- NOTE | 2020-05-12 14:34 | ECGEPIP ---
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
[2020-05-12] MEDS: AZITHROMYCIN INJ 500 MG, VIAL MATE ADAPTER 1 EACH in D5W 250 ML IV SCH (17:06)
[2020-05-12 20:00] VITALS: BP 118/77
[2020-05-12] MEDS: ramipriL 5 MG CAP PO SCH (21:14)
[2020-05-12] MEDS: ACETAMINOPHEN TAB 650MG DOSE (2X325MG) PO PRN (22:02)
[2020-05-13 01:29] VITALS: BP 113/64
[2020-05-13 06:00] VITALS: BP 94/54
[2020-05-13 07:04] VITALS: BP 100/62
[2020-05-13 08:01] LABS: BASO % 0.5 % (0.0-1.0); EOS # 0.1 10^3/uL (0.0-0.5); HEMATOCRIT 35.5 % (42.0-52.0); HEMOGLOBIN 11.9 g/dl (13.5-17.5); LYMPH # 1.1 10^3/uL (1.5-5.0); LYMPH % 28.4 % (24.0-44.0); MEAN CORPUSCULAR HEMOGLOBIN 30.4 pg (27.0-33.0); MEAN CORPUSCULAR HGB CONC 33.5 g/dl (32.0-36.5); MEAN CORPUSCULAR VOLUME 90.8 fl (80.0-96.0); MONO # 0.7 10^3/uL (0.0-0.8); MONO % 16.3 % (0.0-5.0); NEUTROPHILS # 2.1 10^3/uL (1.5-8.5); NEUTROPHILS % 51.5 % (36.0-66.0); PLATELET COUNT, AUTOMATED 201 10^3/uL (150-450); RED BLOOD COUNT 3.91 10^6/uL (4.30-6.10)
[2020-05-13 08:24] LABS: ALBUMIN 2.7 GM/DL (3.2-5.2); ALT/SGPT 24 U/L (12-78); BILIRUBIN,TOTAL 0.2 MG/DL (0.2-1.0); BLOOD UREA NITROGEN 11 MG/DL (7-18); C REACTIVE PROTEIN QUANTITATIV 4.58 MG/DL (0.00-0.30); CALCIUM LEVEL 8.2 MG/DL (8.5-10.1); CARBON DIOXIDE LEVEL 27 MEQ/L (21-32); CHLORIDE LEVEL 110 MEQ/L (98-107); CREATININE FOR GFR 0.66 MG/DL (0.70-1.30); GLOMERULAR FILTRATION RATE > 60.0 (>60); GLUCOSE, FASTING 81 MG/DL (70-100); POTASSIUM SERUM 3.7 MEQ/L (3.5-5.1); SODIUM LEVEL 144 MEQ/L (136-145); TOTAL PROTEIN 5.5 GM/DL (6.4-8.2)
[2020-05-13] MEDS: APIXABAN 5 MG TAB (ELIQUIS) PO SCH (08:37)
--- NOTE | 2020-05-13 09:48 | REP ---
INDICATION: abnormal CXR on admission, f/u COMPARISON: 05/11/2020 TECHNIQUE: PA and lateral. FINDINGS: The mediastinum and cardiac silhouette are normal. The lung tomlinson are clear and without acute consolidation, effusion, or pneumothorax. Chronic linear fibroatelectatic changes in the left mid lung zone unchanged. The skeletal structures are intact and normal. IMPRESSION: No acute cardiopulmonary process. <Electronically signed by Lewis Mayers > 05/13/20 0944
[2020-05-13] MEDS ORDERED: AZIT500T5 PO (12:29)
--- NOTE | 2020-05-13 20:07 | DS.PDOC ---
Discharge Summary General Date of Admission May 11, 2020 at 03:08 Date of Discharge 05/13/20 Attending Physician: Ailyn Martinez MD Discharge Summary HISTORY OF PRESENT ILLNESS: Patient is a 39 year old male with a past medical history significant for paroxysmal atrial fibrillation, hypertension, PAUL, and chronic pain who presented to the [facility] ER with complaint of diarrhea, fevers, chills, aches, and fatigue for 1-2 days duration. Patient stated that he started getting fevers about 2 days ago and has since developed diarrhea. He also states that he has had chills, body aches, and generalized fatigue/weakness. Patient denies any sick contacts. He states no one in his house is sick. He denies any known exposures to COVID-19. Patient denies any bloody diarrhea. In the ER the patient was found to be in Atrial fibrillation with RVR. He was given IV digoxin and IV diltiazem with a positive response. The patient was tested for COVID-19 which was negative. On labs he had a hypokalemia and hypomagnesemia consistent with his diarrheal illness. Additionally, patient had an elevated D-dimer. CTA was ordered which was negative however did show some early bilateral opacities. Hospitalist service was contacted and the patient was admitted for further evaluation and management HOSPITAL COURSE: Gi panel later came back + for Campylobacter, patient was started on azithromyci n. CTA abnormal and repeat COVID test was done, ruling out this as cause of abnormal findings. He displayed no respiratory symptoms at all and remained on RA. Procalcitonin was also normal so other abx were stopped. Diarrhea gradually improved with abx, fluids. He began tolerating his diet well, cleared PT. Repeat CXR done on 05/14/20 was unremarkable. He was discharged home with f/u with PCP, 7 additional days of PO azithromycin and work notice. At time of discharge, patient denied abd pain, n/v, fevers or chills. PAST MEDICAL HISTORY: 1. Paroxysmal atrial fibrillation 2. Hypertension 3. Obstructive Sleep Apnea 4. Obesity 5. Chronic Back pain PAST SURGICAL HISTORY: 1. Cholecystectomy 2. Vasectomy 3. EGD for gastritis 4. Gastric bypass 5. BPH 6. Loop recorder placement SOCIAL HISTORY: Patient lives at home with his and kids. He denies any recent travel. He denies any IV or illicit drug use. Denies alcohol use. Denies tobacco use. His PCP is Catherine Boss. His Billing And Accounting Staff Assistant is Dr. Parker FAMILY HISTORY: Father and mother are both alive. Father has hypertension. Mo ther has CAD, CHF, HTN, and parkinsons. Patients siblings are alive with only medical conditions being PAUL and HTN ALLERGIES: Please see below. DISCHARGE MEDICATIONS: Please see below. PHYSICAL EXAMINATION: VITAL SIGNS:Please see below GENERAL APPEARANCE: NAD, lethargic but Ox3 HEENT: Atraumatic, normocephalic. Eyes are nonicteric. Trachea is midline. Mucous membranes moist CARDIOVASCULAR: Normal S1, S2. Tachycardic rate. Irregularly irregular rhythm. No clicks, rubs, or murmurs LUNGS: Clear breath sounds bilaterally. Good respiratory effort. No wheezes, rhonchi or rales ABDOMEN: Soft, nondistended. Nontender. No rebound tenderness or guarding. Normoactive bowel sounds EXTREMITIES: No edema. Full and equal pulses in bilateral upper and lower extremities NEUROLOGICAL: No focal neurological deficits PSYCHIATRIC: Mood and affect appear appropriate LABORATORY DATA: See below. IMAGING: CXR 05/13/20: No acute cardiopulmonary process. CT Angiography Chest with Contrast : Faint scattered bilateral hazy nonspecific ground glass opacities. No consolidation. No pleural effusions. These parenchymal findings may represent mild, early Covid pneumonia, eg. Clinical and laboratory correlation are needed. The bolus study for pulmonary embolism evaluation is suboptimal due to poor pulmonary arterial opacification. This is a limited evaluation for pulmonary embolism.No major nor central pulmonary emboli are appreciated. 1st and 2nd order arterial branches are also patent. More peripheral, smaller arterial branches cannot be evaluated with full confidence. CXR: No acute chest pathology. The lung tomlinson remain essentially clear. MICROBIOLOGY: GI panel: Campylobacter Repeat COVID: neg ASSESSMENT: Patient is a 39 year old male with a past medical history significa nt for paroxysmal atrial fibrillation on eliquis, hypertension, PAUL, and obesity who presented to the [facility] ER with complaint of diarrhea, fever, and body aches. On presentation patient was found to be in Atrial fibrillation with RVR. PLAN: Campylobacter diarrhea, sepsis resolved -Afebrile, WBC wnl this AM, lactic acid wnl, HR improved -GI panel: Campylobacter -Decreased BM over 24 H -Encouraging Po hydration (at least 120 ounces water daily +), c/w azithromycin x 7 days and close f/u with PCP Atrial Fibrillation, RVR already resolved and was likely 2/2 to acute infections below -HR improved to 70-80, denies CP, SOB, palpitations -Would advise holding diltiazem for several days then restarting- due to lower than normal BP. Bilateral hazy nonspecific ground glass opacities,- resolved on repeat CXR -Febrile, repeat COVID neg -Procalcitonin <0.25 -Sputum cx contaminated -D/jhoana abx for this at this time, on RA with no respiratory symptoms Elevated D-dimer -Wells Score: 0, low risk -possibly 2/2 to acute issues above but could not r/o PE on CTA -COVID neg Hypotension likely 2/2 to diarrhea-improving -Hx of hypertension -Hold dilitiazem, ACEi for several days after discharge PAUL -Noncompliant with CPAP at home -O2 titration orders for spO2 > 90% DVT Prophylaxis -Patient chronically on eliquis -TEDS and Sequentials Resolved issues: Hypokalemia, acute and likely 2/2 to diarrhea Hypomagnesemia, acute and likely 2/2 to diarrhea DISPOSITION: Did well with PT/OT. Plan is home today, f/u with PCP TIME SPENT ON DISCHARGE: Greater than 30 minutes. Vital Signs/I&Os Vital Signs Date Time Temp Pulse Resp B/P (MAP) Pulse Ox O2 Delivery O2 Flow Rate FiO2 05/13/20 07:04 100/62 (75) 05/13/20 06:00 98.2 65 18 96 Room Air I&O- Last 24 Hours up to 6 AM 05/13/20 05:59 Intake Total 2525 ml Output Total 4 ml Balance 2521 ml Laboratory Data Labs 24H Laboratory Tests 2 05/13/20 06:50: Immature Granulocyte % (Auto) 0.3, Neutrophils (%) (Auto) 51.5, Lymphocytes (%) (Auto) 28.4, Monocytes (%) (Auto) 16.3H, Eosinophils (%) (Auto) 3.0, Basophils (%) (Auto) 0.5, Neutrophils # (Auto) 2.1, Lymphocytes # (Auto) 1.1L, Monocytes # (Auto) 0.7, Eosinophils # (Auto) 0.1, Basophils # (Auto) 0.0, Nucleated Red Blood Cells % (auto) 0.0, Anion Gap 7L, Glomerular Filtration Rate > 60.0, Calcium Level 8.2L, Magnesium Level 2.0, Total Bilirubin 0.2, Aspartate Amino Transf (AST/SGOT) 12, Alanine Aminotransferase (ALT/SGPT) 24, Alkaline Phosphatase 52, C-Reactive Protein, Quantitative 4.58H, Total Protein 5.5L, Albumin 2.7L, Albumin/Globulin Ratio 1.0 CBC/BMP Laboratory Tests 05/13/20 06:50 Microbiology Microbiology 05/13/20 Stool Occult Blood (SATYA) - Final, Complete 05/11/20 Gram Stain - Final, Complete 05/11/20 Sputum Culture - Final, Complete 05/11/20 Gastrointestinal Tract Panel (PCR) - Final, Complete Campylobacter 05/11/20 Blood Culture - Preliminary, Resulted No Growth after 48 hours. All Specime... 05/11/20 Blood Culture - Preliminary, Resulted No Growth after 48 hours. All Specime... Discharge Medications Scheduled Apixaban (Eliquis) 5 Mg Tablet, 5 MG PO BID, (Reported) Azithromycin (Azithromycin) 500 Mg Tablet, 500 MG PO DAILY Scheduled PRN Acetaminophen (Tylenol Extra Strength) 500 Mg Tablet, 1,000 MG PO Q6H PRN for PAIN / FEVER, (Reported) Allergies Coded Allergies: SEASONAL ALLERGIES (Verified Allergy, Unknown, 05/09/20) Ailyn Martinez MD May 13, 2020 20:07
== END 2020-05-13 14:13 | disposition home or self-care (01) | DRG 720 ==
LOC: M ED 23:20 → M ED INP 05-11 03:08 → M PCU 05-11 04:39 → M MSPAV 05-12 23:09
PROVIDERS: ADMIT Internal Medicine; ATTEND Internal Medicine
DX: A41.9 Sepsis, unspecified organism (principal); I95.9 Hypotension, unspecified; I48.0 Paroxysmal atrial fibrillation; A04.5 Campylobacter enteritis; E83.42 Hypomagnesemia; I10 Essential (primary) hypertension; G47.33 Obstructive sleep apnea (adult) (pediatric); E87.6 Hypokalemia; E66.9 Obesity, unspecified; N40.0 Benign prostatic hyperplasia without lower urinary tract symptoms; Z91.19 Patient's noncompliance with other medical treatment and regimen; Z68.32 Body mass index [BMI] 32.0-32.9, adult; Z79.899 Other long term (current) drug therapy

== ENCOUNTER → 2021-11-01 | Outpatient (CLI) | payer MEDICAID, SELFPAY ==
[~2021-11-01] MED LIST changes: +ACET-897 PO; +AZIT500T5 PO; +DILT180C70 PO; +ELIQ5TAB PO
== END ==
LOC: M RAD 16:31
PROVIDERS: ATTEND Physician Assistant
DX: S00.83XA Contusion of other part of head, initial encounter (principal); W19.XXXA Unspecified fall, initial encounter

== ENCOUNTER → 2021-12-29 | Outpatient (REF) | payer OTHER ==
[2021-12-29 12:50] LABS: HEMATOCRIT 48.1 % (42.0-52.0); HEMOGLOBIN 15.6 g/dl (13.5-17.5); MEAN CORPUSCULAR HEMOGLOBIN 30.8 pg (27.0-33.0); MEAN CORPUSCULAR HGB CONC 32.4 g/dl (32.0-36.5); MEAN CORPUSCULAR VOLUME 95.1 fl (80.0-96.0); PLATELET COUNT, AUTOMATED 247 10^3/uL (150-450); RED BLOOD COUNT 5.06 10^6/uL (4.30-6.10); WHITE BLOOD COUNT 4.1 10^3/uL (4.0-10.0)
[2021-12-29 13:35] LABS: ALT/SGPT 83 U/L (12-78); BILIRUBIN,TOTAL 0.7 MG/DL (0.2-1.0); BLOOD UREA NITROGEN 12 MG/DL (7-18); CALCIUM LEVEL 9.5 MG/DL (8.5-10.1); CARBON DIOXIDE LEVEL 30 MEQ/L (21-32); CHLORIDE LEVEL 106 MEQ/L (98-107); CHOLESTEROL LEVEL 196 MG/DL (<200); CHOLESTEROL RISK RATIO 3.266 (<5); CREATININE FOR GFR 0.93 MG/DL (0.70-1.30); GLOMERULAR FILTRATION RATE > 60.0 (>60); GLUCOSE, FASTING 90 MG/DL (70-100); HDL CHOLESTEROL 60 MG/DL (>40); LDL CHOLESTEROL 108 MG/DL (<100); MAGNESIUM LEVEL 2.4 MG/DL (1.8-2.4); NON-HDL-C 136 MG/DL; POTASSIUM SERUM 4.6 MEQ/L (3.5-5.1); SODIUM LEVEL 139 MEQ/L (136-145); TOTAL PROTEIN 7.2 GM/DL (6.4-8.2); TRIGLYCERIDES LEVEL 139 MG/DL (<150)
== END ==
LOC: M LABDRWAD 12:33
PROVIDERS: ATTEND Physician Assistant
DX: I48.0 Paroxysmal atrial fibrillation (principal); I10 Essential (primary) hypertension; Z13.220 Encounter for screening for lipoid disorders

== ENCOUNTER 2022-01-07 21:21 | Emergency (ER) | payer OTHER ==
[~2022-01-07] VITALS: Ht 170.2 cm; Wt 103.8 kg
[2022-01-07] MEDS ORDERED: ACETAMINOPHEN TAB 650MG DOSE (2X325MG) PO ONE (22:30)
[2022-01-08 00:18] LABS: BASO % 0.3 % (0.0-1.0); HEMATOCRIT 42.6 % (42.0-52.0); HEMOGLOBIN 14.5 g/dl (13.5-17.5); LYMPH # 0.5 10^3/uL (1.5-5.0); LYMPH % 4.7 % (24.0-44.0); MEAN CORPUSCULAR HEMOGLOBIN 30.9 pg (27.0-33.0); MEAN CORPUSCULAR VOLUME 90.8 fl (80.0-96.0); MONO # 0.7 10^3/uL (0.0-0.8); MONO % 7.4 % (2.0-8.0); NEUTROPHILS # 8.7 10^3/uL (1.5-8.5); NEUTROPHILS % 87.1 % (36.0-66.0); PLATELET COUNT, AUTOMATED 207 10^3/uL (150-450); RED BLOOD COUNT 4.69 10^6/uL (4.30-6.10)
[2022-01-08] MEDS ORDERED: ACETAMINOPHEN 500 MG TAB PO ONE (00:25)
[2022-01-08] MEDS ORDERED: ACETAMINOPHEN 325 MG TAB PO ONE (00:35)
[2022-01-08 00:58] LABS: ALBUMIN 3.8 GM/DL (3.2-5.2); BILIRUBIN,DIRECT 0.3 MG/DL (0.0-0.2); TOTAL PROTEIN 6.9 GM/DL (6.4-8.2)
[2022-01-08] MEDS ORDERED: ONDANSETRON 4MG 2ML VIAL IV ONE (01:00)
[2022-01-08 01:34] VITALS: BP 137/81
[2022-01-08] MEDS ORDERED: ONDA4TAB6 PO (02:13)
[2022-01-08] MEDS ORDERED: NS 1,000 ML IV ONE (02:20)
[2022-01-13] MEDS ORDERED: ZITHTAB PO (09:47)
== END 2022-01-08 02:19 | disposition home or self-care (01) ==
LOC: M ED 21:21
DX: R53.1 Weakness (principal); R50.9 Fever, unspecified; R00.0 Tachycardia, unspecified; I10 Essential (primary) hypertension; Z98.84 Bariatric surgery status; Z79.01 Long term (current) use of anticoagulants; Z79.899 Other long term (current) drug therapy
CPT/HCPCS: 71046; 80047; 80076; 83690; 85025; 87040; 87077; 87486; 87581; 87633; 87798; 93005; 96374; 99284; J2405

== ENCOUNTER 2022-01-12 17:10 | Emergency (ER) | payer OTHER ==
[~2022-01-12] VITALS: Ht 170.2 cm; Wt 103.0 kg
[~2022-01-12 17:10] MED LIST changes: +ONDA4TAB6 PO
[2022-01-12 19:49] LABS: HEMATOCRIT 44.2 % (42.0-52.0); MEAN CORPUSCULAR HGB CONC 33.9 g/dl (32.0-36.5); MEAN CORPUSCULAR VOLUME 91.3 fl (80.0-96.0); PLATELET COUNT, AUTOMATED 256 10^3/uL (150-450); RED BLOOD COUNT 4.84 10^6/uL (4.30-6.10); WHITE BLOOD COUNT 3.7 10^3/uL (4.0-10.0)
[2022-01-12 19:51] LABS: INR 0.97; PROTHROMBIN TIME 13.3 SECONDS (12.7-14.5)
[2022-01-12 19:52] LABS: PARTIAL THROMBOPLASTIN TIME 28.7 SECONDS (25.9-37.0)
[2022-01-12 20:01] LABS: ALBUMIN 3.5 GM/DL (3.2-5.2); ALT/SGPT 108 U/L (12-78); BILIRUBIN,DIRECT 0.2 MG/DL (0.0-0.2); BILIRUBIN,TOTAL 0.5 MG/DL (0.2-1.0); BLOOD UREA NITROGEN 12 MG/DL (7-18); CARBON DIOXIDE LEVEL 26 MEQ/L (21-32); CHLORIDE LEVEL 105 MEQ/L (98-107); CREATININE FOR GFR 0.88 MG/DL (0.70-1.30); GLOMERULAR FILTRATION RATE > 60.0 (>60); GLUCOSE, FASTING 89 MG/DL (70-100); LIPASE 232 U/L (73-393); POTASSIUM SERUM 3.4 MEQ/L (3.5-5.1); SODIUM LEVEL 138 MEQ/L (136-145); TOTAL PROTEIN 7.3 GM/DL (6.4-8.2)
[2022-01-12 20:08] LABS: ATYPICAL LYMPH 6 % (0-5); BASOPHILS 2 % (0-1); EOSINOPHILS 1 % (0-3); LYMPHOCYTES 32 % (16-44); MONOCYTES 15 % (0-5); MYELOCYTES 1 % (0-0); NEUTROPHILS 43 % (28-66)
[2022-01-12 20:09] LABS: PLATELET ESTIMATE INCREASED (NORMAL)
[2022-01-12 20:52] VITALS: BP 148/73
[2022-01-13] MEDS ORDERED: ZITHTAB PO (09:47)
== END 2022-01-12 20:53 | disposition home or self-care (01) ==
LOC: M ED 17:10
DX: R19.5 Other fecal abnormalities (principal); D72.820 Lymphocytosis (symptomatic); I10 Essential (primary) hypertension; Z86.79 Personal history of other diseases of the circulatory system; Z79.01 Long term (current) use of anticoagulants; Z79.899 Other long term (current) drug therapy

== ENCOUNTER → 2023-02-14 | Outpatient (CLI) | payer OTHER ==
[~2023-02-14] MED LIST changes: +ZITHTAB PO
[2023-02-14 18:08] LABS: HEMATOCRIT 43.9 % (42.0-52.0); HEMOGLOBIN 14.8 g/dl (13.5-17.5); MEAN CORPUSCULAR HEMOGLOBIN 31.2 pg (27.0-33.0); MEAN CORPUSCULAR HGB CONC 33.7 g/dl (32.0-36.5); MEAN CORPUSCULAR VOLUME 92.4 fl (80.0-96.0); PLATELET COUNT, AUTOMATED 251 10^3/uL (150-450); RED BLOOD COUNT 4.75 10^6/uL (4.30-6.10); WHITE BLOOD COUNT 4.6 10^3/uL (4.0-10.0)
[2023-02-14 18:31] LABS: ALBUMIN 3.9 G/DL (3.2-5.2); ALKALINE PHOSPHATASE 71 U/L (46-116); ALT/SGPT 120 U/L (7.0-40); AST/SGOT 61 U/L (<34); BILIRUBIN,TOTAL 0.5 MG/DL (0.3-1.2); BLOOD UREA NITROGEN 13 MG/DL (9-23); CALCIUM LEVEL 9.1 MG/DL (8.5-10.1); CARBON DIOXIDE LEVEL 27 MMOL/L (20-31); CHLORIDE LEVEL 103 MMOL/L (98-107); CHOLESTEROL LEVEL 219 MG/DL (<200); CHOLESTEROL RISK RATIO 3.29 (<5); CREATININE FOR GFR 0.75 MG/DL (0.70-1.30); GLOMERULAR FILTRATION RATE > 60.0 (>60); GLUCOSE, FASTING 85 MG/DL (60-100); HDL CHOLESTEROL 66.4 MG/DL (>40); NON-HDL-C 152.6 MG/DL; POTASSIUM SERUM 4.1 MMOL/L (3.5-5.1); SODIUM LEVEL 137 MMOL/L (136-145); THYROID STIMULATING HORMONE 1.699 uIU/ML (0.55-4.78); TOTAL PROTEIN 7.1 G/DL (5.7-8.2); TRIGLYCERIDES LEVEL 93 MG/DL (<150)
== END ==
LOC: M LAB 17:21
PROVIDERS: ATTEND Physician Assistant
DX: I48.0 Paroxysmal atrial fibrillation (principal); Z13.220 Encounter for screening for lipoid disorders; I10 Essential (primary) hypertension

== ENCOUNTER → 2023-03-01 | Outpatient (CLI) | payer OTHER | LOC: M SLEEP HO 10:33 | PROVIDERS: ATTEND Physician Assistant | DX: I27.29 Other secondary pulmonary hypertension (principal); G47.30 Sleep apnea, unspecified ==

== ENCOUNTER → 2023-05-07 | Outpatient (CLI) | payer OTHER | LOC: M SLEEP 20:00 | PROVIDERS: ATTEND Physician Assistant | DX: G47.33 Obstructive sleep apnea (adult) (pediatric) (principal) ==

== ENCOUNTER → 2023-12-06 | Outpatient (REF) | payer OTHER ==
[~2023-12-06] MED LIST changes: +ONDA-282 PO; -ONDA4TAB6 PO; -RAMI1CAP24 PO; +RAMI5CAP60 PO
[2023-12-06 13:45] LABS: BASO % 0.4 % (0.0-1.0); EOS # 0.1 10^3/uL (0.0-0.5); EOS % 3.6 % (0.0-3.0); HEMATOCRIT 45.5 % (42.0-52.0); LYMPH # 1.1 10^3/uL (1.5-5.0); LYMPH % 40.7 % (24.0-44.0); MEAN CORPUSCULAR HEMOGLOBIN 31.1 pg (27.0-33.0); MEAN CORPUSCULAR VOLUME 94.2 fl (80.0-96.0); MONO # 0.6 10^3/uL (0.0-0.8); MONO % 23.3 % (2.0-8.0); PLATELET COUNT, AUTOMATED 222 10^3/uL (150-450); RED BLOOD COUNT 4.83 10^6/uL (4.30-6.10); WHITE BLOOD COUNT 2.8 10^3/uL (4.0-10.0)
[2023-12-06 13:56] LABS: HEMOGLOBIN A1c 5.8 % (4.0-6.0)
[2023-12-06 14:14] LABS: ALBUMIN 3.9 G/DL (3.2-5.2); ALKALINE PHOSPHATASE 64 U/L (46-116); ALT/SGPT 109 U/L (7.0-40); AST/SGOT 64 U/L (<34); BILIRUBIN,TOTAL 0.7 MG/DL (0.3-1.2); BLOOD UREA NITROGEN 16 MG/DL (9-23); CALCIUM LEVEL 9.1 MG/DL (8.5-10.1); CARBON DIOXIDE LEVEL 28 MMOL/L (20-31); CHLORIDE LEVEL 106 MMOL/L (98-107); CHOLESTEROL LEVEL 184 MG/DL (<200); CHOLESTEROL RISK RATIO 3.96 (<5); CREATININE FOR GFR 0.81 MG/DL (0.70-1.30); GLOMERULAR FILTRATION RATE > 60.0 (>60); GLUCOSE, FASTING 95 MG/DL (60-100); HDL CHOLESTEROL 46.4 MG/DL (>40); MAGNESIUM LEVEL 2.2 MG/DL (1.8-2.4); NON-HDL-C 137.6 MG/DL; PSA SCREENING 0.59 NG/ML (< 4.00); SODIUM LEVEL 137 MMOL/L (136-145); TRIGLYCERIDES LEVEL 78 MG/DL (<150)
[2023-12-06 14:18] LABS: THYROID STIMULATING HORMONE 1.059 uIU/ML (0.55-4.78); TOTAL 25(OH) VITAMIN D 28.4 NG/ML (20.0-100.0)
[2023-12-06 14:19] LABS: FOLATE 20.6 NG/ML (>5.4); VITAMIN B12 LEVEL 488 PG/ML (211-911)
[2023-12-06 14:25] LABS: NEUTROPHILS # 0.9 10^3/uL (1.5-8.5)
== END ==
LOC: M LABDRWAD 12:49
PROVIDERS: ATTEND Physician Assistant
DX: I48.0 Paroxysmal atrial fibrillation (principal); G47.33 Obstructive sleep apnea (adult) (pediatric); I10 Essential (primary) hypertension; Z13.220 Encounter for screening for lipoid disorders; F10.10 Alcohol abuse, uncomplicated; E66.01 Morbid (severe) obesity due to excess calories; Z98.84 Bariatric surgery status; N52.9 Male erectile dysfunction, unspecified
CPT/HCPCS: 80053; 80061; 82306; 82607; 82746; 83036; 83735; 84402; 84403; 84439; 84443; 85025; G0103

== ENCOUNTER → 2023-12-06 | Outpatient (CLI) | payer OTHER | LOC: M WHC 08:11 | PROVIDERS: ATTEND Physician Assistant | DX: Z53.9 Procedure and treatment not carried out, unspecified reason (principal) ==

== ENCOUNTER → 2023-12-10 | Outpatient (CLI) | payer OTHER | LOC: M WHC 12:12 | PROVIDERS: ATTEND Physician Assistant | DX: N50.9 Disorder of male genital organs, unspecified (principal); K40.90 Unilateral inguinal hernia, without obstruction or gangrene, not specified as recurrent ==

== ENCOUNTER → 2024-01-15 | Outpatient (REF) | payer OTHER ==
[2024-01-15 13:52] LABS: BASO % 0.9 % (0.0-1.0); EOS # 0.1 10^3/uL (0.0-0.5); EOS % 3.4 % (0.0-3.0); HEMOGLOBIN 15.1 g/dl (13.5-17.5); LYMPH # 1.1 10^3/uL (1.5-5.0); LYMPH % 34.7 % (24.0-44.0); MEAN CORPUSCULAR HEMOGLOBIN 30.5 pg (27.0-33.0); MEAN CORPUSCULAR HGB CONC 32.8 g/dl (32.0-36.5); MEAN CORPUSCULAR VOLUME 92.9 fl (80.0-96.0); MONO # 0.6 10^3/uL (0.0-0.8); MONO % 19.7 % (2.0-8.0); NEUTROPHILS # 1.3 10^3/uL (1.5-8.5); PLATELET COUNT, AUTOMATED 229 10^3/uL (150-450); RED BLOOD COUNT 4.95 10^6/uL (4.30-6.10); WHITE BLOOD COUNT 3.2 10^3/uL (4.0-10.0)
[2024-01-15 13:54] LABS: ALKALINE PHOSPHATASE 68 U/L (46-116); ALT/SGPT 64 U/L (7.0-40); AST/SGOT 31 U/L (<34); BILIRUBIN,TOTAL 0.8 MG/DL (0.3-1.2); BLOOD UREA NITROGEN 14 MG/DL (9-23); CALCIUM LEVEL 9.9 MG/DL (8.5-10.1); CARBON DIOXIDE LEVEL 29 MMOL/L (20-31); CHLORIDE LEVEL 106 MMOL/L (98-107); CREATININE FOR GFR 0.85 MG/DL (0.70-1.30); GLOMERULAR FILTRATION RATE > 60.0 (>60); GLUCOSE, FASTING 100 MG/DL (60-100); POTASSIUM SERUM 4.5 MMOL/L (3.5-5.1); SODIUM LEVEL 140 MMOL/L (136-145); TOTAL PROTEIN 7.2 G/DL (5.7-8.2)
[2024-01-15 13:56] LABS: FERRITIN 76.3 NG/ML (10.5-307.3)
[2024-01-17 11:57] LABS: ANA SCREEN, IFA NEGATIVE (NEGATIVE)
== END ==
LOC: M SFHCADAM 10:11
PROVIDERS: ATTEND Physician Assistant
DX: R74.8 Abnormal levels of other serum enzymes (principal); D72.819 Decreased white blood cell count, unspecified

== ENCOUNTER → 2024-01-23 | Outpatient (REF) | payer OTHER ==
[2024-01-23 18:02] LABS: APPEARANCE, URINE CLEAR (CLEAR); BACTERIA, URINE AUTO NEGATIVE (NEGATIVE); BILIRUBIN, URINE AUTO NEGATIVE (NEGATIVE); BLOOD, URINE BLOOD NEGATIVE (NEGATIVE); COLOR, URINE YELLOW (YELLOW); GLUCOSE, URINE (UA) AUTO NEGATIVE (NEGATIVE); KETONE, URINE AUTO NEGATIVE (NEGATIVE); LEUKOCYTE ESTERASE, URINE AUTO NEGATIVE (NEGATIVE); MUCUS, URINE SMALL (NEGATIVE); NITRITE, URINE AUTO NEGATIVE (NEGATIVE); PROTEIN, URINE AUTO NEGATIVE (NEGATIVE); RBC, URINE AUTO 1 /HPF (0-3); SPECIFIC GRAVITY URINE AUTO 1.026 (1.002-1.035); SQUAMOUS EPITHELIAL CELL UR AU 0 /HPF (0-6); WBC, URINE AUTO 1 /HPF (0-3)
== END ==
LOC: M SMT 17:10
PROVIDERS: ATTEND Nurse Practitioner Family
DX: N45.1 Epididymitis (principal)

== ENCOUNTER → 2024-02-13 | Outpatient (CLI) | payer OTHER | LOC: M RAD 07:52 | PROVIDERS: ATTEND Physician Assistant | DX: R74.8 Abnormal levels of other serum enzymes (principal); K76.0 Fatty (change of) liver, not elsewhere classified; R16.0 Hepatomegaly, not elsewhere classified ==

== ENCOUNTER → 2024-03-06 | Outpatient (CLI) | payer OTHER ==
[~2024-03-06] MED LIST changes: +FLEC25TA; +LIDOCAINE 1% MDV 20ML VIAL As Ordered ONE; +LISI20TA33; +SILD100T; +TIRZ2.5P
[2024-03-06 08:07] VITALS: TEMP 97.5
[2024-03-06 08:55] LABS: BASO % 0.5 % (0.0-1.0); EOS # 0.1 10^3/uL (0.0-0.5); HEMATOCRIT 42.7 % (42.0-52.0); HEMOGLOBIN 14.5 g/dl (13.5-17.5); LYMPH # 1.3 10^3/uL (1.5-5.0); LYMPH % 35.9 % (24.0-44.0); MEAN CORPUSCULAR HEMOGLOBIN 31.3 pg (27.0-33.0); MEAN CORPUSCULAR VOLUME 92.2 fl (80.0-96.0); MONO # 0.6 10^3/uL (0.0-0.8); MONO % 14.9 % (2.0-8.0); NEUTROPHILS # 1.7 10^3/uL (1.5-8.5); NEUTROPHILS % 45.2 % (36.0-66.0); PLATELET COUNT, AUTOMATED 210 10^3/uL (150-450); RED BLOOD COUNT 4.63 10^6/uL (4.30-6.10); WHITE BLOOD COUNT 3.7 10^3/uL (4.0-10.0)
[2024-03-06 09:13] VITALS: BP 142/95; O2SAT 98
== END ==
LOC: M IRPRO 07:56
PROVIDERS: ATTEND Internal Medicine Hematology & Oncology
DX: D72.821 Monocytosis (symptomatic) (principal)

== ENCOUNTER → 2024-07-11 | Outpatient (CLI) | payer OTHER ==
[~2024-07-11] MED LIST changes: -LIDOCAINE 1% MDV 20ML VIAL As Ordered ONE
== END ==
LOC: M EKG 13:02
PROVIDERS: ATTEND Physician Assistant
DX: I49.3 Ventricular premature depolarization (principal)

== ENCOUNTER → 2024-08-22 | Outpatient (REF) | payer OTHER ==
[2024-08-22 17:41] LABS: CHOLESTEROL RISK RATIO 3.64 (<5); HDL CHOLESTEROL 60.7 MG/DL (>40); LDL CHOLESTEROL 143.9 MG/DL (<100); NON-HDL-C 160.3 MG/DL; THYROID STIMULATING HORMONE 1.123 uIU/ML (0.55-4.78)
[2024-08-22 17:43] LABS: FREE T4 1.07 NG/DL (0.89-1.76)
[2024-08-22 17:44] LABS: FOLATE 11.8 NG/ML (>5.4)
[2024-08-22 17:59] LABS: HEMOGLOBIN A1c 5.8 % (4.0-6.0)
== END ==
LOC: M SFHCADAM 12:04
PROVIDERS: ATTEND Physician Assistant
DX: G47.33 Obstructive sleep apnea (adult) (pediatric) (principal); I48.0 Paroxysmal atrial fibrillation; I10 Essential (primary) hypertension; Z28.21 Immunization not carried out because of patient refusal; D72.819 Decreased white blood cell count, unspecified; E66.9 Obesity, unspecified; R20.0 Anesthesia of skin; Z98.84 Bariatric surgery status

== ENCOUNTER → 2025-02-27 | Outpatient (REF) | payer OTHER | LOC: M SFHCADAM 11:54 | PROVIDERS: ATTEND Physician Assistant | DX: E87.5 Hyperkalemia (principal) ==